=== PATIENT | male | born 1955 | race Native Hawaiian/Other Pacific Islander ===

== ENCOUNTER 2018-04-06 13:18 | Inpatient (IN) | payer OTHER ==
[2018-04-06 13:29] VITALS: BMI 29.0
[2018-04-06] MEDS: Sodium Chloride 0.9% 1,000 ML IV STA ×2 (13:30→13:35)
[2018-04-06] MEDS: Pantoprazole 40mg/100mL NS 40 MG/100 ML BAG IVPB SCH ×3 (14:03→23:55)
[2018-04-06] MEDS ORDERED: Sodium Chloride 0.9% 1,000 ML IV STA (14:04)
[2018-04-06 14:06] LABS: BASO # 0.02 K/mm3 (0.0-2.0); BASO % 0.2 % (0.0-3.0); EOS # 0.1 (0.0-0.7); EOS % 0.9 % (1.5-5.0); GRAN # 5.5 (1.4-6.5); GRAN % 58.9 % (50.0-68.0); HEMOGLOBIN 15.8 g/dL (14.0-18.0); LYMPH # 3.4 (1.2-3.4); LYMPH % 35.9 % (22.0-35.0); MEAN CELL VOLUME 89.2 fl (80.0-105.0); MEAN CORPUSCULAR HEMOGLOBIN 30.4 pg (25.0-35.0); MEAN CORPUSCULAR HGB CONC 34.1 g/dl (31.0-37.0); MEAN PLATELET VOLUME 9.5 fl (7.0-11.0); MONO # 0.4 (0.1-0.6); MONO % 4.1 % (1.0-6.0); RBC 5.2 10^6/uL (3.5-6.1); RED CELL DISTRIBUTION WIDTH 12.8 % (11.5-14.5); WHITE BLOOD COUNT 9.3 10^3/ul (4.5-11.0)
--- NOTE | 2018-04-06 14:12 | RAD ---
Date of service: 04/06/2018 HISTORY: weakness COMPARISON: No prior. FINDINGS: LUNGS: No active pulmonary disease. PLEURA: No significant pleural effusion identified, no pneumothorax apparent. CARDIOVASCULAR: Normal. OSSEOUS STRUCTURES: No significant abnormalities. VISUALIZED UPPER ABDOMEN: Normal. OTHER FINDINGS: None. IMPRESSION: No active disease.
[2018-04-06 14:15] LABS: INR 0.94; PARTIAL THROMBOPLASTIN TIME 29.5 Seconds (25.1-36.5); PROTHROMBIN TIME 10.7 SECONDS (9.4-12.5)
[2018-04-06 14:18] LABS: ALB/GLOB RATIO 1.5 (1.1-1.8); ALBUMIN 4.9 g/dL (3.0-4.8); ALT/SGPT 43 U/L (7-56); AST/SGOT 34 U/L (17-59); BLOOD UREA NITROGEN 23 mg/dL (7-21); CALCIUM 9.4 mg/dL (8.4-10.5); GFR NON-AFRICAN AMERICAN > 60
--- NOTE | 2018-04-06 14:24 | ED PDOC ---
Arrival/HPI - General Chief Complaint: GI Problem Time Seen by Provider: 04/06/18 13:35 Historian: Patient, Family - History of Present Illness Narrative History of Present Illness (Text): 04/06/18 15:25 Patient is a 63 yo male, past medical history of hypertension, past medical history of gastronintestinal bleeding requiring previous blood transfusions and admissions, presents to the Emergency Department after a "red" bowel movement this morning three hours prior to arrival, followed by a larger bloody bowel movement one hour afterwards. As he was being transported to the ED, patient complains of feeling dizzy and lightheaded and had a third bloody bowel movement. Denies symptoms yesterday. Denies chest pain or shortness of breath. Denies abdominal pain. Denies nausea or vomiting. Denies taking any blood thinners. Time/Duration: Prior to Arrival Symptom Onset: Sudden Past Medical History - Infectious Disease Hx of Infectious Diseases: None - Cardiac Hx Hypertension: Yes - Endocrine/Metabolic Hx Diabetes Mellitus Type 2: Yes - Hematological/Oncological Hx Blood Disorders: Yes Other/Comment: "clotting disorder" - Gastrointestinal Hx Diverticulitis: Yes Hx Hemorrhoids: Yes - Psychiatric Hx Substance Use: No - Anesthesia Hx Anesthesia: No Family/Social History Family/Social History: Unknown Family HX Smoking Status: Never Smoked Hx Alcohol Use: No Hx Substance Use: No Allergies/Home Meds Allergies/Adverse Reactions: Allergies Penicillins Allergy (Verified 04/06/18 13:29) RASH Home Medications: Home Meds Medication Instructions Recorded Confirmed Atorvastatin [Lipitor] 1 tab PO HS 04/06/18 04/06/18 Canagliflozin/Metformin HCl 1 tab PO DAILY 04/06/18 04/06/18 [Invokamet 150-500 mg Tablet] Losartan [Cozaar] 1 tab PO DAILY 04/06/18 04/06/18 amLODIPine [Norvasc] 1 tab PO DAILY 04/06/18 04/06/18 Review of Systems - Review of Systems Constitutional: Fatigue. absent: Fevers Eyes: absent: Vision Changes ENT: absent: Hearing Changes Respiratory: absent: SOB, Cough Cardiovascular: absent: Chest Pain, Palpitations, Edema, Calf Pain, VICKERS Gastrointestinal: Hematochezia. absent: Abdominal Pain, Diarrhea, Nausea, Vomiting, Hematemesis Genitourinary Male: absent: Dysuria, Frequency Musculoskeletal: absent: Back Pain Skin: absent: Rash Neurological: Dizziness. absent: Headache, Focal Weakness, Gait Changes, Speech Changes, Seizure Endocrine: Diaphoresis. absent: Polyuria, Polydipsia Hemo/Lymphatic: Easy Bleeding. absent: Easy Bruising Psychiatric: absent: Depression, Suicidal Ideation Physical Exam - Physical Exam Narrative Physical Exam (Text): 04/06/18 14:28 Head: Atraumatic. Normocephalic. Eyes: PERRL. EOMI. Conjunctivae are pale. ENT: Mucous membranes are moist and intact. Oropharynx is clear and symmetric. Neck: Supple. Full ROM. No JVD. No lymphadenopathy. No meningeal signs. Cardiovascular: Regular rate. Regular rhythm. Systolic murmur noted. Distal pulses are 2+ and symmetric. Pulmonary/Chest: No evidence of respiratory distress. Clear to auscultation bilaterally. No wheezing, rales or rhonchi. Abdominal: Soft and non-distended. There is no tenderness. No rebound, guarding, or rigidity. No organomegaly. Good bowel sounds. Rectal: no external masses, maroon/red active bleeding noted from rectum, profuse, no internal masses digitally palpated, no external hemorrhoids or masses Back: No CVA tenderness. Extremities: No edema. No cyanosis. No clubbing. Full range of motion in all extremities. No calf tenderness. Skin: Skin is pale and diaphoretic. Neurological: Alert, awake, and oriented. Motor and sensory exam intact. Psychiatric: Good eye contact. Normal interaction, affect, and behavior. Vital Signs Reviewed: Yes Vital Signs Temp Pulse Resp BP Pulse Ox 04/06/18 15:31 91 H 18 106/43 L 99 04/06/18 15:08 96 H 18 114/79 98 04/06/18 14:43 91 H 18 128/52 L 98 04/06/18 14:04 98 H 17 137/93 H 97 04/06/18 13:28 99.2 F Temperature: Afebrile Blood Pressure: Hypertensive Pulse: Tachycardic Respiratory Rate: Normal Appearance: Positive for: Ill-Appearing Pain Distress: Moderate Mental Status: Positive for: Alert and Oriented X 3 Medical Decision Making ED Course and Treatment: 04/06/18 13:40 Impression: 63 year old male presenting to the emergency department complaining of rectal bleeding. Plan: stat iv line establishment and volume replacement, monitoring, cbc, gi consultation Prior Visits: Notes and results from previous visits were reviewed. Progress Notes: Patient on initial exam is diaphoretic, lightheaded. On exam he is actively bleeding with maroon blood noted approximately one liter total noted in bucket from rectum. There is currently no chest pain or abdominal pain. His heart rate is 99-103. Blood pressure systolic 130. He has history of hypertension. Past history significant for prior GI bleeds at outside facilities "6 years ago from internal hemorrhoid" and "3 years ago from diverticulitis" both requiring ICU admission as well as blood transfusions. Based on LARGE amount of active bleeding, diaphoresis, tachycardia, history of hypertension, iv lines immediately ordered as well as iv fluids. Emergent consultations placed with GI, Dr. Louie requested by admitting oncall physician Dr. Nalini Duran. ICU consultation obtained. 2 units prbc ordered based on HEAVY ACTIVE BLEEDING. Consent obtained after risks/benefits reviewed. Resident Care Spec evaluated patient in the ED. Surgery consulted due to heavy active bleeding. CT abdomen ordered. Bleeding scan ordered. Patient to be admitted to ICU. On re-exam, less diaphoretic. Heart rate 98. SBP 119. Patient denies taking aspirin or plavix or coumadin or any other blood thinners. Patient's hgb initially 15.8. This was reviewed with scheduler conveyor as well as GI team. Patient less diaphoretic. Blood products not transfused yet at this time and is pending. At this time, will HOLD initiation of transfusion as BP stable, patient remains alert, with no pain or tachycardia. Patient currently at bleeding scan. I have reviewed treatment plan with ICU team, who will follow-up with patient in ICU, reassess bleeding, vital signs, and repeat hgb. Decision to transfuse endorsed to ICU team pending re-evaluation of Hgb and re-examination of patient and imaging studies. - Lab Interpretations Lab Results: 04/06/18 13:45 04/06/18 13:45 Lab Results 04/06/18 14:00: Blood Type Confirm A POSITIVE 04/06/18 13:45: Blood Type A POSITIVE, Antibody Screen Negative, Crossmatch See Detail, BBK History Checked No verified bt 04/06/18 13:45: PT 10.7, INR 0.94, APTT 29.5 04/06/18 13:45: WBC 9.3, RBC 5.20, Hgb 15.8, Hct 46.4, MCV 89.2, MCH 30.4, MCHC 34.1, RDW 12.8, Plt Count 152, MPV 9.5, Gran % 58.9, Lymph % (Auto) 35.9 H, [place] % (Auto) 4.1, Eos % (Auto) 0.9 L, Baso % (Auto) 0.2, Gran # 5.50, Lymph # ( Auto) 3.4, [place] # (Auto) 0.4, Eos # (Auto) 0.1, Baso # (Auto) 0.02 04/06/18 13:45: Sodium 139, Potassium 4.1, Chloride 101, Carbon Dioxide 25, Anion Gap 16, BUN 23 H, Creatinine 0.8, Est GFR ( Amer) > 60, Est GFR ( Non-Af Amer) > 60, Random Glucose 129 H, Calcium 9.4, Total Bilirubin 0.8, AST 34, ALT 43, Alkaline Phosphatase 48, Lactate Dehydrogenase 469, Total Creatine Kinase 202, Troponin I < 0.01, Total Protein 8.2, Albumin 4.9 H, Globulin 3.3, Albumin/Globulin Ratio 1.5 - RAD Interpretation Narrative RAD Interpretations (Text): 04/06/18 14:38 Procedure: Chest X-ray Impression: No active disease. Dictator: Vinicio Damian MD Radiology Orders: 04/06/18 13:44 CHEST PORTABLE [RAD] Stat 04/06/18 14:36 ABD & PELVIS IV CONTRAST ONLY [CT] Stat Assistant To The Ceo: Radiologist - EKG Interpretation EKG Interpretation (Text): 04/06/18 15:31 EKG at 13:48 normal sinus rhythm rate of [address] elevations Interpreted by ED Physician: Yes Type: 12 lead EKG - Medication Orders Current Medication Orders: Dextrose (Dextrose 50% Inj) 0 ml IV STAT PRN; Protocol PRN Reason: Hypoglycemia Protocol Pantoprazole Sodium (Protonix 40mg Ivpb) 40 mg in 100 mls @ 20 mls/hr IVPB .Q5H [facility] Last Admin: 04/06/18 14:03 Dose: 20 mls/hr eMAR Start Stop Document 04/06/18 14:03 SF (Rec: 04/06/18 14:03 [email or web address] Intravenous Solution Start Date 04/06/18 Start Time 14:03 End Date 04/06/18 End time 19:03 Total Infusion Time 300 Dextrose (Dextrose 5% In Water 1000 Ml) 1,000 mls @ 0 mls/hr IV .Q0M PRN; Protocol; Per Protocol PRN Reason: Hypoglycemia Protocol Insulin Human Lispro (Humalog Low) 0 units SC ACHS [facility] PRN Reason: Protocol Discontinued Medications Sodium Chloride (Sodium Chloride 0.9%) 1,000 mls @ 1,000 mls/hr IV .Q1H STA Stop: 04/06/18 14:44 Last Admin: 04/06/18 13:35 Dose: 1,000 mls/hr eMAR Start Stop Document 04/06/18 13:35 SF (Rec: 04/06/18 14:03 [email or web address] Intravenous Solution Start Date 04/06/18 Start Time 13:35 End Date 04/06/18 End time 14:35 Total Infusion Time 60 Sodium Chloride (Sodium Chloride 0.9%) 1,000 mls @ 1,000 mls/hr IV .Q1H STA Stop: 04/06/18 15:03 Last Admin: 04/06/18 14:06 Dose: Pantoprazole Sodium (Protonix Inj) 40 mg IVP ONCE STA Stop: 04/06/18 13:46 Last Admin: 04/06/18 14:03 Dose: 40 mg IVP Administration Document 04/06/18 14:03 SF (Rec: 04/06/18 14:03 [email or web address] Charges for Administration # of IVP Administrations 1 - Scribe Statement The provider has reviewed the documentation as recorded by the Efrain Stanley All medical record entries made by the Courtneyibduke were at my direction and personally dictated by me. I have reviewed the chart and agree that the record accurately reflects my personal performance of the history, physical exam, medical decision making, and the department course for this patient. I have also personally directed, reviewed, and agree with the discharge instructions and disposition. Disposition/Present on Arrival - Present on Arrival Any Indicators Present on Arrival: No History of DVT/PE: No History of Uncontrolled Diabetes: No Urinary Catheter: No History of Decub. Ulcer: No History Surgical Site Infection Following: None - Disposition Have Diagnosis and Disposition been Completed?: Yes Diagnosis: Gastrointestinal bleeding Disposition: HOSPITALIZED Disposition Time: 14:30 Patient Plan: Admission, ICU Patient Problems: Current Active Problems Problem Status Onset Gastrointestinal bleeding Acute Condition: CRITICAL
[2018-04-06 14:29] LABS: TROPONIN I < 0.01 ng/mL
--- NOTE | 2018-04-06 15:02 | CP.PCM.CON ---
History of Present Illness - History of Present Illness History of Present Illness: MICU Consult Note HPI Patient is 63yo male with PMhx of LGIB 2/2 diverticulosis, HTN, DM, presents to the ER with rectal bleeding. Patient notes since this morning he has had 3 large blood BMs, loose, without fever, chills, N/V, abd pain. Pt also endorses mild dizziness which as resolved. Pt reports 3 years ago he had similar hospital presentation at which time it was found to be diverticular bleeding. Pt denies ASA, Plavix, NSAID, Anticoagulatn use. No other constitutional symptoms. Pt denies, CP, SOB, palpitations, HORN, hematemesis, recent melena. Labs, imaging, chart reviewed. 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 ROS as above Review of Systems - Review of Systems Review of Systems: as per HPi Past Patient History - Infectious Disease Hx of Infectious Diseases: None - Past Social History Smoking Status: Never Smoked - CARDIAC Hx Hypertension: Yes - ENDOCRINE/METABOLIC Hx Diabetes Mellitus Type 2: Yes - HEMATOLOGICAL/ONCOLOGICAL Hx Blood Disorders: Yes Other/Comment: "clotting disorder" - GASTROINTESTINAL Hx Diverticulitis: Yes Hx Hemorrhoids: Yes - PSYCHIATRIC Hx Substance Use: No - ANESTHESIA Hx Anesthesia: No Meds Allergies/Adverse Reactions: Allergies Allergy/AdvReac Type Severity Reaction Status Date / Time Penicillins Allergy RASH Verified 04/06/18 13:29 - Medications Medications: Current Medications Pantoprazole Sodium (Protonix 40mg Ivpb) 40 mg in 100 mls @ 20 mls/hr IVPB .Q5H [facility] Last Admin: 04/06/18 14:03 Dose: 20 mls/hr Sodium Chloride (Sodium Chloride 0.9%) 1,000 mls @ 1,000 mls/hr IV .Q1H STA Stop: 04/06/18 15:03 Last Admin: 04/06/18 14:06 Dose: Not Given Physical Exam - Constitutional Appears: Non-toxic, No Acute Distress - Head Exam Head Exam: NORMAL INSPECTION - Eye Exam Eye Exam: Normal appearance - ENT Exam ENT Exam: Mucous Membranes Moist - Neck Exam Neck exam: Positive for: Full Rom - Respiratory Exam Respiratory Exam: Clear to Auscultation Bilateral, NORMAL BREATHING PATTERN - Cardiovascular Exam Cardiovascular Exam: REGULAR RHYTHM, +S1, +S2 - GI/Abdominal Exam GI & Abdominal Exam: Normal Bowel Sounds, Soft - Extremities Exam Extremities exam: Positive for: normal inspection - Neurological Exam Neurological exam: Alert, Oriented x3 - Skin Skin Exam: Normal Color, Warm Results - Vital Signs Recent Vital Signs: Last Vital Signs Temp 99.2 F 04/06/18 13:28 Pulse 91 H 04/06/18 14:43 Resp 18 04/06/18 14:43 BP 128/52 L 04/06/18 14:43 Pulse Ox 98 04/06/18 14:43 - Labs Result Diagrams: 04/06/18 13:45 04/06/18 13:45 Labs: Laboratory Results - last 24 hr 04/06/18 04/06/18 04/06/18 13:45 13:45 13:45 WBC 9.3 RBC 5.20 Hgb 15.8 Hct 46.4 MCV 89.2 MCH 30.4 MCHC 34.1 RDW 12.8 Plt Count 152 MPV 9.5 Gran % 58.9 Lymph % (Auto) 35.9 H [place] % (Auto) 4.1 Eos % (Auto) 0.9 L Baso % (Auto) 0.2 Gran # 5.50 Lymph # (Auto) 3.4 [place] # (Auto) 0.4 Eos # (Auto) 0.1 Baso # (Auto) 0.02 PT 10.7 INR 0.94 APTT 29.5 Sodium 139 Potassium 4.1 Chloride 101 Carbon Dioxide 25 Anion Gap 16 BUN 23 H Creatinine 0.8 Est GFR ( Amer) > 60 Est GFR (Non-Af Amer) > 60 Random Glucose 129 H Calcium 9.4 Total Bilirubin 0.8 AST 34 ALT 43 Alkaline Phosphatase 48 Lactate Dehydrogenase 469 Total Creatine Kinase 202 Troponin I < 0.01 Total Protein 8.2 Albumin 4.9 H Globulin 3.3 Albumin/Globulin Ratio 1.5 Crossmatch BBK History Checked 04/06/18 13:45 WBC RBC Hgb Hct MCV MCH MCHC RDW Plt Count MPV Gran % Lymph % (Auto) [place] % (Auto) Eos % (Auto) Baso % (Auto) Gran # Lymph # (Auto) [place] # (Auto) Eos # (Auto) Baso # (Auto) PT INR APTT Sodium Potassium Chloride Carbon Dioxide Anion Gap BUN Creatinine Est GFR ( Amer) Est GFR (Non-Af Amer) Random Glucose Calcium Total Bilirubin AST ALT Alkaline Phosphatase Lactate Dehydrogenase Total Creatine Kinase Troponin I Total Protein Albumin Globulin Albumin/Globulin Ratio Crossmatch See Detail BBK History Checked No verified bt Assessment & Plan - Assessment and Plan (Free Text) Assessment: Pt is 63 yo male a/w LGIB HTN DM LGIB - currently afebrile, BP stable, HR 90s, AAOx3, NAD, comfortable - HH noted - GI, Surgery consulted - CT A/P pending Recommend: - supp o2 as needed, duonebs PRN, IS - Panculture, UCx, Bcx, Procal - Hold BP meds - IVF hydration - NPO - Surgical eval - Gi eval - CT A/P with PO/IV contrast - serial CBCs - maintain 2 large bore PIVs - GI ppx - DVT ppx, SCDs - Admit to MICU
--- NOTE | 2018-04-06 15:08 | CP.PCM.CON ---
<Torres Pineda - Last Filed: 04/06/18 14:59> History of Present Illness - History of Present Illness History of Present Illness: GI Fellow PGY4 consult note. Ismael Steve is a very pleasant 63M with history of hemorrhoids, diverticulosis presenting with acute GI bleed. Patient was have problems with constipation and pushing very hard. His BM had some blood streaked stool and later developed into very large blood per rectum. In the ED he had ~ 1 L of blood produced. He was tachycardic and diaphoretic. 2 unit blood ordered. Hb 15. BUN/Cr normal. He denies nausea, vomiting, abdominal pain, weight changes. Patient has history of GI bleeding in the past that required transfusions and ICU admission. He is a patient of Dr. Gonzalez. Last colonoscopy 1 year ago, showing diverticulosis and hemorrhoids. He had hemorrhoid banded several years ago. PMHx - DM, HTN, HLD, constipation PSHx - none FMHx - unremarkable SocHx- Denies smoking, etoh. 12pt ROS neg except for above Past Patient History - Infectious Disease Hx of Infectious Diseases: None - Past Social History Smoking Status: Never Smoked - CARDIAC Hx Hypertension: Yes - ENDOCRINE/METABOLIC Hx Diabetes Mellitus Type 2: Yes - HEMATOLOGICAL/ONCOLOGICAL Hx Blood Disorders: Yes Other/Comment: "clotting disorder" - GASTROINTESTINAL Hx Diverticulitis: Yes Hx Hemorrhoids: Yes - PSYCHIATRIC Hx Substance Use: No - ANESTHESIA Hx Anesthesia: No Meds Allergies/Adverse Reactions: Allergies Allergy/AdvReac Type Severity Reaction Status Date / Time Penicillins Allergy RASH Verified 04/06/18 13:29 - Medications Medications: Current Medications Pantoprazole Sodium (Protonix 40mg Ivpb) 40 mg in 100 mls @ 20 mls/hr IVPB .Q5H [facility] Last Admin: 04/06/18 14:03 Dose: 20 mls/hr Sodium Chloride (Sodium Chloride 0.9%) 1,000 mls @ 1,000 mls/hr IV .Q1H STA Stop: 04/06/18 15:03 Last Admin: 04/06/18 14:06 Dose: Not Given Physical Exam - Constitutional Appears: Non-toxic, In Acute Distress - Head Exam Head Exam: NORMAL INSPECTION - Eye Exam Eye Exam: Normal appearance - ENT Exam ENT Exam: Mucous Membranes Moist - Respiratory Exam Respiratory Exam: Clear to Auscultation Bilateral, NORMAL BREATHING PATTERN - Cardiovascular Exam Cardiovascular Exam: Tachycardia, +S1, +S2 - GI/Abdominal Exam GI & Abdominal Exam: Normal Bowel Sounds, Soft. absent: Tenderness - Rectal Exam Rectal Exam: Bloody Stool - Neurological Exam Neurological exam: Alert, CN II-XII Intact, Oriented x3 - Psychiatric Exam Psychiatric exam: Normal Affect, Normal Mood - Skin Skin Exam: Dry, Normal Color Results - Vital Signs Recent Vital Signs: Last Vital Signs Temp 99.2 F 04/06/18 13:28 Pulse 91 H 04/06/18 14:43 Resp 18 04/06/18 14:43 BP 128/52 L 04/06/18 14:43 Pulse Ox 98 04/06/18 14:43 - Labs Result Diagrams: 04/06/18 13:45 04/06/18 13:45 Labs: Laboratory Results - last 24 hr 04/06/18 04/06/18 04/06/18 13:45 13:45 13:45 WBC 9.3 RBC 5.20 Hgb 15.8 Hct 46.4 MCV 89.2 MCH 30.4 MCHC 34.1 RDW 12.8 Plt Count 152 MPV 9.5 Gran % 58.9 Lymph % (Auto) 35.9 H Ocean % (Auto) 4.1 Eos % (Auto) 0.9 L Baso % (Auto) 0.2 Gran # 5.50 Lymph # (Auto) 3.4 Ocean # (Auto) 0.4 Eos # (Auto) 0.1 Baso # (Auto) 0.02 PT 10.7 INR 0.94 APTT 29.5 Sodium 139 Potassium 4.1 Chloride 101 Carbon Dioxide 25 Anion Gap 16 BUN 23 H Creatinine 0.8 Est GFR ( Amer) > 60 Est GFR (Non-Af Amer) > 60 Random Glucose 129 H Calcium 9.4 Total Bilirubin 0.8 AST 34 ALT 43 Alkaline Phosphatase 48 Lactate Dehydrogenase 469 Total Creatine Kinase 202 Troponin I < 0.01 Total Protein 8.2 Albumin 4.9 H Globulin 3.3 Albumin/Globulin Ratio 1.5 Blood Type Antibody Screen Crossmatch BBK History Checked 04/06/18 13:45 WBC RBC Hgb Hct MCV MCH MCHC RDW Plt Count MPV Gran % Lymph % (Auto) Ocean % (Auto) Eos % (Auto) Baso % (Auto) Gran # Lymph # (Auto) Ocean # (Auto) Eos # (Auto) Baso # (Auto) PT INR APTT Sodium Potassium Chloride Carbon Dioxide Anion Gap BUN Creatinine Est GFR ( Amer) Est GFR (Non-Af Amer) Random Glucose Calcium Total Bilirubin AST ALT Alkaline Phosphatase Lactate Dehydrogenase Total Creatine Kinase Troponin I Total Protein Albumin Globulin Albumin/Globulin Ratio Blood Type A POSITIVE Antibody Screen Negative Crossmatch See Detail BBK History Checked No verified bt Assessment & Plan - Assessment and Plan (Free Text) Assessment: 63M with history of diverticulosis presenting with acute GI bleed likely due to diverticular bleed #Acute blood loss due to likely diverticular bleed #Diverticulosis #Hemorrhoids #HTN #DM PLAN: -Blood products ordered. -Monitor Hb q6h x 24hr. -Supportive care, large bore IVs -Monitor in ICU overnight until stable -Recommend surgical evaluation given history of major bleeds, multiple transfusions -GI Bleeding scan stat -PPI IV daily as this is likely a lower gi bleed. -NPO except meds -Hold all anticoagulation, NSAIDs. I discussed case with Dr. Alves. - Date & Time Date: 04/06/18 Time: 15:14 <Dina Alves - Last Filed: 04/07/18 12:10> Meds - Medications Medications: Current Medications Dextrose (Dextrose 50% Inj) 0 ml IV STAT PRN; Protocol PRN Reason: Hypoglycemia Protocol Dextrose (Dextrose 5% In Water 1000 Ml) 1,000 mls @ 0 mls/hr IV .Q0M PRN; Protocol; Per Protocol PRN Reason: Hypoglycemia Protocol Dextrose/Sodium Chloride (Dextrose 5%/0.9% Ns 1000 Ml) 1,000 mls @ 150 mls/hr IV .Q6H40M [facility] Last Admin: 04/07/18 09:38 Dose: 150 mls/hr Insulin Human Lispro (Humalog Low) 0 units SC ACHS [facility] PRN Reason: Protocol Last Admin: 04/07/18 08:25 Dose: Not Given Pantoprazole Sodium (Protonix Inj) 40 mg IVP DAILY [facility] Last Admin: 04/07/18 09:41 Dose: 40 mg Results - Vital Signs Recent Vital Signs: Last Vital Signs Temp 98.1 F 04/07/18 09:36 Pulse 76 04/07/18 08:00 Resp 30 H 04/07/18 08:31 BP 131/71 04/07/18 08:00 Pulse Ox 97 04/07/18 08:00 - Labs Result Diagrams: 04/07/18 08:30 04/07/18 04:15 Labs: Laboratory Results - last 24 hr 04/06/18 04/06/18 04/06/18 15:48 18:27 22:11 WBC 9.5 RBC 4.57 Hgb 13.7 L D Hct 40.6 L MCV 88.8 MCH 30.0 MCHC 33.7 RDW 12.9 Plt Count 150 MPV 9.9 Gran % 69.3 H Lymph % (Auto) 26.3 Ocean % (Auto) 4.2 Eos % (Auto) 0.1 L Baso % (Auto) 0.1 Gran # 6.60 H Lymph # (Auto) 2.5 Ocean # (Auto) 0.4 Eos # (Auto) 0.0 Baso # (Auto) 0.01 pO2 VBG pH VBG pCO2 VBG HCO3 VBG Total CO2 VBG O2 Sat (Calc) VBG Base Excess VBG Potassium Glucose Lactate FiO2 Sodium Potassium Chloride Carbon Dioxide Anion Gap BUN Creatinine Est GFR ( Amer) Est GFR (Non-Af Amer) POC Glucose (mg/dL) 138 H Random Glucose Calcium Phosphorus Magnesium Total Bilirubin AST ALT Alkaline Phosphatase Troponin I Total Protein Albumin Globulin Albumin/Globulin Ratio Venous Blood Potassium Urine Color Light yellow Urine Appearance Clear Urine pH 6.0 Ur Specific [place] 1.020 Urine Protein Negative Urine Glucose (UA) >=1000 Urine Ketones 15 H Urine Blood Negative Urine Nitrate Negative Urine Bilirubin Negative Urine Urobilinogen 0.2 Ur Leukocyte Esterase Negative 04/06/18 04/07/18 04/07/18 22:39 04:15 04:15 WBC 8.7 7.0 RBC 4.16 3.86 Hgb 12.5 L 11.7 L Hct 37.0 L 34.4 L MCV 88.9 89.1 MCH 30.0 30.3 MCHC 33.8 34.0 RDW 13.0 12.9 Plt Count 152 137 MPV 9.6 10.1 Gran % Lymph % (Auto) Ocean % (Auto) Eos % (Auto) Baso % (Auto) Gran # Lymph # (Auto) Ocean # (Auto) Eos # (Auto) Baso # (Auto) pO2 VBG pH VBG pCO2 VBG HCO3 VBG Total CO2 VBG O2 Sat (Calc) VBG Base Excess VBG Potassium Glucose Lactate FiO2 Sodium 139 Potassium 4.2 Chloride 107 Carbon Dioxide 25 Anion Gap 11 BUN 16 Creatinine 0.7 L Est GFR ( Amer) > 60 Est GFR (Non-Af Amer) > 60 POC Glucose (mg/dL) Random Glucose 129 H Calcium 7.9 L Phosphorus 3.2 Magnesium 2.1 Total Bilirubin 0.7 AST 27 ALT 33 Alkaline Phosphatase 31 L D Troponin I Total Protein 5.8 Albumin 3.3 Globulin 2.5 Albumin/Globulin Ratio 1.3 Venous Blood Potassium Urine Color Urine Appearance Urine pH Ur Specific [place] Urine Protein Urine Glucose (UA) Urine Ketones Urine Blood Urine Nitrate Urine Bilirubin Urine Urobilinogen Ur Leukocyte Esterase 04/07/18 04/07/18 04/07/18 07:38 08:30 09:00 WBC 6.1 RBC 3.95 Hgb 11.9 L Hct 35.5 L MCV 89.9 MCH 30.1 MCHC 33.5 RDW 13.0 Plt Count 142 MPV 9.5 Gran % Lymph % (Auto) Ocean % (Auto) Eos % (Auto) Baso % (Auto) Gran # Lymph # (Auto) Ocean # (Auto) Eos # (Auto) Baso # (Auto) pO2 VBG pH VBG pCO2 VBG HCO3 VBG Total CO2 VBG O2 Sat (Calc) VBG Base Excess VBG Potassium Glucose Lactate FiO2 Sodium Potassium Chloride Carbon Dioxide Anion Gap BUN Creatinine Est GFR ( Amer) Est GFR (Non-Af Amer) POC Glucose (mg/dL) 144 H Random Glucose Calcium Phosphorus Magnesium Total Bilirubin AST ALT Alkaline Phosphatase Troponin I < 0.01 Total Protein Albumin Globulin Albumin/Globulin Ratio Venous Blood Potassium Urine Color Urine Appearance Urine pH Ur Specific [place] Urine Protein Urine Glucose (UA) Urine Ketones Urine Blood Urine Nitrate Urine Bilirubin Urine Urobilinogen Ur Leukocyte Esterase 04/07/18 04/07/18 09:00 10:54 WBC RBC Hgb Hct MCV MCH MCHC RDW Plt Count MPV Gran % Lymph % (Auto) Ocean % (Auto) Eos % (Auto) Baso % (Auto) Gran # Lymph # (Auto) Ocean # (Auto) Eos # (Auto) Baso # (Auto) pO2 34 VBG pH 7.36 VBG pCO2 46.0 VBG HCO3 26.0 VBG Total CO2 27.4 VBG O2 Sat (Calc) 71.9 H VBG Base Excess 0.1 VBG Potassium 3.9 Glucose 147 H Lactate 1.4 FiO2 21.0 Sodium 139.0 Potassium Chloride 107.0 Carbon Dioxide Anion Gap BUN Creatinine Est GFR ( Amer) Est GFR (Non-Af Amer) POC Glucose (mg/dL) 168 H Random Glucose Calcium Phosphorus Magnesium Total Bilirubin AST ALT Alkaline Phosphatase Troponin I Total Protein Albumin Globulin Albumin/Globulin Ratio Venous Blood Potassium 3.9 Urine Color Urine Appearance Urine pH Ur Specific [place] Urine Protein Urine Glucose (UA) Urine Ketones Urine Blood Urine Nitrate Urine Bilirubin Urine Urobilinogen Ur Leukocyte Esterase Attending/Attestation - Attestation I have personally seen and examined this patient.: Yes I have fully participated in the care of the patient.: Yes I have reviewed all pertinent clinical information: Yes Notes (Text): 04/07/18 12:07 63 yr old M admitted with hstory of diverticular bleed with rectal bleeding. Will send patient for bleeding scan and plan rest of management accordingly. If positive will require IR embolization
[2018-04-06] MEDS ORDERED: Dextrose 50% SYRINGE Inj (50 ml) IV PRN (16:08)
--- NOTE | 2018-04-06 16:08 | CP.PCM.CON ---
History of Present Illness - History of Present Illness History of Present Illness: General Surgery Dr. Kohler 63 y/o M w/ PMHx of HTN, DM2 presents to the ED c/o GI bleeding. Pt reports dark melenotic loose stool this AM upon waking. Pt reports associated lightheadedness and dizziness. Pt had similar episode of GI bleeding 3yrs ago [place] [facility] [place], bleeding attributed to internal hemorrhoids. In the ED, pt has had multiple episodes of BRBPR. Pt became hypotensive and ICU consult placed. Hgb 15 on presentation; however, likely lower now. Pt given IVF bolus and pressure responded appropriately. 2 units pRBC current on hold should pt require transfusion. Pt currently denies F/C, N/V , abd pain, recent illness, CP, SOB. Pt going for bleeding scan as per GI recs. PMHx: HLD, HTN, DM2, clotting disordfer, diverticulosis, hemorrhoids, GIB Meds: reviewed in chart ALL: PCN PSH: knee arthroscopy SHx: former smoker (quit 30yrs ago), social EtOH, denies drug use FHx:noncontributory Review of Systems - Review of Systems All systems: reviewed and no additional remarkable complaints except (see HPI) Past Patient History - Infectious Disease Hx of Infectious Diseases: None - Past Social History Smoking Status: Never Smoked - CARDIAC Hx Hypertension: Yes - ENDOCRINE/METABOLIC Hx Diabetes Mellitus Type 2: Yes - HEMATOLOGICAL/ONCOLOGICAL Hx Blood Disorders: Yes Other/Comment: "clotting disorder" - GASTROINTESTINAL Hx Diverticulitis: Yes Hx Hemorrhoids: Yes - PSYCHIATRIC Hx Substance Use: No - ANESTHESIA Hx Anesthesia: No Meds Allergies/Adverse Reactions: Allergies Allergy/AdvReac Type Severity Reaction Status Date / Time Penicillins Allergy RASH Verified 04/06/18 13:29 - Medications Medications: Current Medications Pantoprazole Sodium (Protonix 40mg Ivpb) 40 mg in 100 mls @ 20 mls/hr IVPB .Q5H [facility] Last Admin: 04/06/18 14:03 Dose: 20 mls/hr Physical Exam - Constitutional Appears: Non-toxic, No Acute Distress - Head Exam Head Exam: NORMAL INSPECTION - Eye Exam Eye Exam: Normal appearance - ENT Exam ENT Exam: Mucous Membranes Moist - Respiratory Exam Respiratory Exam: NORMAL BREATHING PATTERN. absent: Accessory Muscle Use, Respiratory Distress - Cardiovascular Exam Cardiovascular Exam: REGULAR RHYTHM. absent: Bradycardia, Tachycardia - GI/Abdominal Exam GI & Abdominal Exam: Soft. absent: Distended, Firm, Guarding, Rebound, Rigid, Tenderness - Rectal Exam Rectal Exam: Bloody Stool - Extremities Exam Extremities exam: Positive for: normal inspection. Negative for: pedal edema - Neurological Exam Neurological exam: Alert, Oriented x3 - Psychiatric Exam Psychiatric exam: Normal Affect, Normal Mood - Skin Skin Exam: Dry, Intact, Pallor, Warm Results - Vital Signs Recent Vital Signs: Last Vital Signs Temp 99.2 F 04/06/18 13:28 Pulse 91 H 04/06/18 15:33 Resp 18 04/06/18 15:31 BP 106/43 L 04/06/18 15:31 Pulse Ox 99 04/06/18 15:33 - Labs Result Diagrams: 04/06/18 13:45 04/06/18 13:45 - Imaging and Cardiology Bleeding scan Status: Pending Assessment & Plan - Assessment and Plan (Free Text) Assessment: 63 y/o M w/ lower GI bleeding likely 2/2 diverticulosis, though bleeding scan pending - f/u bleeding scan - f/u GI recs - transfuse for Hgb <7 &/or symptomatic anemia - monitor bowel function - Q6 H/H until stable - NPO/IVF - monitor vitals Q4 - strict Is & Os - may need IR embolization vs surgery if continues to bleed - cont medical management per ICU Pt discussed w/ Dr. Jose F Avilez DO PGY3
[2018-04-06 16:17] LABS: URINE BILIRUBIN NEGATIVE (NEGATIVE); URINE BLOOD NEGATIVE (NEGATIVE); URINE GLUCOSE (UA) >=1000 mg/dL (NEGATIVE); URINE LEUKOCYTE ESTERASE NEGATIVE Leu/uL (NEGATIVE); URINE PROTEIN NEGATIVE mg/dL (<30 mg/dL); URINE UROBILINOGEN 0.2 E.U./dL (<1 E.U./dL)
[2018-04-06 16:18] LABS: URINE APPEARANCE CLEAR (CLEAR); URINE COLOR LIGHT YELLOW (YELLOW)
--- NOTE | 2018-04-06 17:22 | CT ---
Date of service: 04/06/2018 PROCEDURE: CT Abdomen and Pelvis with contrast HISTORY: patient with severe gi bleed COMPARISON: None. TECHNIQUE: Contrast dose: 150 cc Omnipaque 350. Radiation dose: Total exam DLP = 528.62 mGy-cm. This CT exam was performed using one or more of the following dose reduction techniques: Automated exposure control, adjustment of the mA and/or kV according to patient size, and/or use of iterative reconstruction technique. FINDINGS: LOWER THORAX: Unremarkable. LIVER: Hepatic steatosis. No focal masses. No intrahepatic bile duct dilatation or perihepatic ascites. GALLBLADDER AND BILE DUCTS: Unremarkable. PANCREAS: Unremarkable. No gross lesion or ductal dilatation. SPLEEN: Unremarkable. ADRENALS: Unremarkable. No mass. KIDNEYS AND URETERS: Unremarkable. No hydronephrosis. No solid mass. VASCULATURE: Unremarkable. No aortic aneurysm. BOWEL: Mild dilatation of the colon in its entirety, of portions of the colon including the sigmoid and rectum are fluid filled. Diverticulosis without an acute inflammatory component or other associated pathologic process. APPENDIX: No abnormalities to suggest acute appendicitis. No right lower quadrant inflammatory processes identified. PERITONEUM: Unremarkable. No free fluid. No free air. LYMPH NODES: Unremarkable. No enlarged lymph nodes. BLADDER: Unremarkable. REPRODUCTIVE: Unremarkable. BONES: No acute fracture. OTHER FINDINGS: None. IMPRESSION: Mildly dilated fluid-filled colon without mechanical obstruction. Diverticulosis without an acute inflammatory component or other associated pathologic process. Additional benign and/or incidental findings described above.
--- NOTE | 2018-04-06 17:30 | CARD ---
APPROVED REPORT Date of service: 04/06/2018 EKG Measurement Heart [id number] <Conclusion> Normal sinus rhythm Possible Inferior infarct, age undetermined Abnormal ECG
--- NOTE | 2018-04-06 18:05 | NM ---
Date of service: 04/06/2018 PROCEDURE: Nuclear medicine gastrointestinal bleeding scan. HISTORY: Hematochezia COMPARISON: None available. TECHNIQUE: 4ccof patient blood was withdrawn and mixed with 20.2mCi of technetium ultra tagged. Images of the abdomen and pelvis were obtained in the anterior and posterior projection at 1 min intervals over a period of 45 min. FINDINGS: There is immediate pooling of blood in the rectum and what appears to be blood in outside the pelvic cavity. There there is brisk bleeding from the right hemicolon in the vicinity of the splenic flexure with subsequent images demonstrating rapid transit through the colon including transverse colon sigmoid. Physiologic activity was seen in the heart, liver, spleen and blood vessels. IMPRESSION: Positive examination for acute gastrointestinal hemorrhage. The site of origin appears to be the ascending colon/ hepatic flexure with subsequent transit through the remainder of the colon and pooling beyond the anal rectal junction
[2018-04-06 18:33] LABS: BASO # 0.01 K/mm3 (0.0-2.0); BASO % 0.1 % (0.0-3.0); EOS % 0.1 % (1.5-5.0); GRAN # 6.6 (1.4-6.5); GRAN % 69.3 % (50.0-68.0); HEMOGLOBIN 13.7 g/dL (14.0-18.0); LYMPH # 2.5 (1.2-3.4); LYMPH % 26.3 % (22.0-35.0); MEAN CELL VOLUME 88.8 fl (80.0-105.0); MEAN CORPUSCULAR HGB CONC 33.7 g/dl (31.0-37.0); MEAN PLATELET VOLUME 9.9 fl (7.0-11.0); MONO # 0.4 (0.1-0.6); MONO % 4.2 % (1.0-6.0); RBC 4.57 10^6/uL (3.5-6.1); RED CELL DISTRIBUTION WIDTH 12.9 % (11.5-14.5); WHITE BLOOD COUNT 9.5 10^3/ul (4.5-11.0)
[2018-04-06] MEDS: Dextrose 5%/0.9% NS 1,000 ML IV SCH (19:52)
[2018-04-06] MEDS: Insulin Lispro (humaLOG) LOW Coverage SC SCH (22:00)
[2018-04-06 22:40] LABS: HEMOGLOBIN 12.5 g/dL (14.0-18.0); MEAN CELL VOLUME 88.9 fl (80.0-105.0); MEAN CORPUSCULAR HGB CONC 33.8 g/dl (31.0-37.0); MEAN PLATELET VOLUME 9.6 fl (7.0-11.0); RBC 4.16 10^6/uL (3.5-6.1); WHITE BLOOD COUNT 8.7 10^3/ul (4.5-11.0)
--- NOTE | 2018-04-06 23:23 | HP ---
I am tax commissioner today for the [facility]. HISTORY OF PRESENT ILLNESS: He is a 63-year-old man I saw in the Intensive Care Unit, who comes in with history of gastrointestinal bleeding, will require a blood transfusion and admission to the Intensive Care Unit. They showed me a picture of the bedpan completely full of bright dark red blood. He has had this once before from a bleeding hemorrhoid. He also had it once before from a bleeding diverticulitis. He also was eating a lot of nuts this weekend and we are not sure where it is coming from except that is a GI bleed. He will need to be transfused, it looks like at least 2-3 units of blood are in the bedpan. He is not short of breath. No chest pain. No dizziness, but he feels like it is going to happen and it was a sudden onset. He has a history of type 2 diabetes. He does have a clotting this order. He has had diverticulitis. He has had hemorrhoids in the past that were bleeding. FAMILY HISTORY: Unknown family history. SOCIAL HISTORY: Never smoked. No alcohol. No drugs. ALLERGIES: HE HAS AN ALLERGY TO PENICILLIN. MEDICATIONS: He is on Lipitor, metformin, Cozaar and Norvasc. PAST MEDICAL HISTORY: He has got hypertension, diabetes, high cholesterol history. REVIEW OF SYSTEMS: Very tired. No fevers. No acute vision or hearing changes. No shortness of breath or cough. No chest pain, palpitations, edema, calf pain or dyspnea on exertion. He is having hematochezia. No abdominal pain. No diarrhea. No nausea, vomiting. No hematemesis. Just a lot of blood in the bowels. No problems urinating. No back pain. No skin rashes or ulcers. He is a little bit dizzy. No headache, focal weakness changes or speech changes. No problems urinating, but he is a little bit sweaty and he easily bleeds. No depression. No suicidal ideation. PHYSICAL EXAMINATION: VITAL SIGNS: He has a 99.2 temp, 98 pulse, 17 respiratory rate, 137/93 blood pressure, 97% O2 sat on room air. HEENT: His head is atraumatic, normocephalic. Extraocular muscles are intact. Pupils equal, reactive to light. Conjunctivae are clear at this time. Throat is moist. NECK: Supple. No lymphadenopathy. No meningeal signs. LUNGS: Clear to auscultation with decreased breath sounds. No wheezes or rhonchi or rales appreciated. HEART: Regular rate. ABDOMEN: Completely soft, nontender. Positive bowel sounds. No guarding, no rebound, no CVA tenderness. Good bowel sounds. RECTAL: Showed no external masses. Maroon red active bleeding noted in the rectum, profuse. No palpable external hemorrhoids, they said. No CVA tenderness. EXTREMITIES: No edema of the lower extremities. SKIN: Pale and diaphoretic. NEUROLOGIC: He is alert and oriented x3. Motor and sensory exam are intact. PSYCHIATRIC: Good eye contact. Normal interaction, affect and behavior. LYMPHATICS: Thyroid midline. No palpable lymphadenopathy. LABORATORY DATA: He had multiple tests done. CAT scan of the abdomen and pelvis showed some diverticulosis. Chest x-ray was clear. No active disease. He had an electrocardiogram, which showed normal sinus rhythm, possible inferior infarct, age undetermined. He had a bleeding scan, which showed ascending colon, hepatic flexure could be the area of the bleeding. IMPRESSION: He is going to have consults with GI and Surgery and the office machines sales representative. He is in the Intensive Care Unit right now. He is on dextrose, insulin, Protonix IV. He will get insulin coverage and oxygen. We will check his labs tomorrow. He is going to have blood test [id number] and he most probably will be transfused in the next 24 hours. He is here for acute gastrointestinal bleed. Consulted GI, Surgery and the office machines sales representative. César Duran DO
[2018-04-07] MEDS: Dextrose 5%/0.9% NS 1,000 ML IV SCH ×3 (02:15→16:35)
[2018-04-07] MEDS: Pantoprazole 40mg/100mL NS 40 MG/100 ML BAG IVPB SCH (04:58)
[2018-04-07 05:05] LABS: ALB/GLOB RATIO 1.3 (1.1-1.8); ALBUMIN 3.3 g/dL (3.0-4.8); ALT/SGPT 33 U/L (7-56); AST/SGOT 27 U/L (17-59); BLOOD UREA NITROGEN 16 mg/dL (7-21); CALCIUM 7.9 mg/dL (8.4-10.5); GFR NON-AFRICAN AMERICAN > 60
[2018-04-07 05:11] LABS: HEMOGLOBIN 11.7 g/dL (14.0-18.0); MEAN CELL VOLUME 89.1 fl (80.0-105.0); MEAN CORPUSCULAR HEMOGLOBIN 30.3 pg (25.0-35.0); MEAN PLATELET VOLUME 10.1 fl (7.0-11.0); RBC 3.86 10^6/uL (3.5-6.1); RED CELL DISTRIBUTION WIDTH 12.9 % (11.5-14.5)
[2018-04-07] MEDS: Insulin Lispro (humaLOG) LOW Coverage SC SCH ×3 (08:25→16:37)
--- NOTE | 2018-04-07 08:42 | CP.PCM.PN ---
<Torres Pineda - Last Filed: 04/07/18 10:42> Subjective - Date & Time of Evaluation Date of Evaluation: 04/07/18 Time of Evaluation: 08:40 - Subjective Subjective: GI Fellow PGY4 Patient is doing better this AM. His bloody BMs are decreasing in volume and frequency. His vitals have normalized and Hb trending to plateau. He has been able to get out of bed without lightheadedness. He denies abdominal pain, nausea , vomiting. 5pt ROS neg except for above. Objective - Vital Signs/Intake and Output Vital Signs (last 24 hours): Temp Pulse Resp BP Pulse Ox 98.2 F 69 18 131/75 97 04/07/18 04:00 04/07/18 06:10 04/07/18 06:10 04/07/18 06:00 04/07/18 06:10 Intake and Output: 04/07/18 04/07/18 06:59 18:59 Intake Total 2040 Output Total 950 Balance 1090 - Medications Medications: Current Medications Dextrose (Dextrose 50% Inj) 0 ml IV STAT PRN; Protocol PRN Reason: Hypoglycemia Protocol Pantoprazole Sodium (Protonix 40mg Ivpb) 40 mg in 100 mls @ 20 mls/hr IVPB .Q5H [facility] Last Admin: 04/07/18 04:58 Dose: 20 mls/hr Dextrose (Dextrose 5% In Water 1000 Ml) 1,000 mls @ 0 mls/hr IV .Q0M PRN; Protocol; Per Protocol PRN Reason: Hypoglycemia Protocol Dextrose/Sodium Chloride (Dextrose 5%/0.9% Ns 1000 Ml) 1,000 mls @ 150 mls/hr IV .Q6H40M [facility] Last Admin: 04/07/18 02:15 Dose: 150 mls/hr Insulin Human Lispro (Humalog Low) 0 units SC ACHS [facility] PRN Reason: Protocol Last Admin: 04/07/18 08:25 Dose: Not Given - Labs Labs: 04/07/18 04:15 04/07/18 04:15 PT 10.7 SECONDS (9.4-12.5) 04/06/18 13:45 INR 0.94 04/06/18 13:45 APTT 29.5 Seconds (25.1-36.5) 04/06/18 13:45 - Constitutional Appears: Non-toxic, No Acute Distress - Head Exam Head Exam: NORMAL INSPECTION - Eye Exam Eye Exam: Normal appearance - ENT Exam ENT Exam: Mucous Membranes Moist - Respiratory Exam Respiratory Exam: Clear to Ausculation Bilateral, NORMAL BREATHING PATTERN - Cardiovascular Exam Cardiovascular Exam: REGULAR RHYTHM - GI/Abdominal Exam GI & Abdominal Exam: Soft, Normal Bowel Sounds. absent: Tenderness - Extremities Exam Extremities Exam: Normal Inspection - Neurological Exam Neurological Exam: Normal Gait, Oriented x3 - Psychiatric Exam Psychiatric exam: Normal Affect, Normal Mood - Skin Skin Exam: Dry, Normal Color Assessment and Plan - Assessment and Plan (Free Text) Assessment: 63M with history of diverticulosis presenting with acute GI bleed likely due to diverticular bleed #Acute blood loss due to likely diverticular bleed #Diverticulosis #Hemorrhoids #HTN #DM PLAN: -Bleeding scan shows likely hepatic flexure bleed. -Clinical and Hb appear that bleeding has improved. -Blood products ordered and are on hold. At this point, he does not need them. -Continue to monitor Hb, and BM -If everything continues to appear stable, he can likely transfer out of ICU this afternoon. -Surgery on board. -d/c ppi, no upper GI bleed, not taking previously -Start CLD. -Hold all anticoagulation, NSAIDs. -Must avoid constipation in the future. Recommend daily MiraLax as outpt titrated to 1 soft BM per day. -Note, if bleeding resumes, worsens, he would benefit from IR embolization. <Dina Alves - Last Filed: 04/07/18 12:13> Objective - Vital Signs/Intake and Output Vital Signs (last 24 hours): Temp Pulse Resp BP Pulse Ox 98.1 F 76 30 H 131/71 97 04/07/18 09:36 04/07/18 08:00 04/07/18 08:31 04/07/18 08:00 04/07/18 08:00 Intake and Output: 04/07/18 04/07/18 06:59 18:59 Intake Total 2040 Output Total 950 Balance 1090 - Medications Medications: Current Medications Dextrose (Dextrose 50% Inj) 0 ml IV STAT PRN; Protocol PRN Reason: Hypoglycemia Protocol Dextrose (Dextrose 5% In Water 1000 Ml) 1,000 mls @ 0 mls/hr IV .Q0M PRN; Protocol; Per Protocol PRN Reason: Hypoglycemia Protocol Dextrose/Sodium Chloride (Dextrose 5%/0.9% Ns 1000 Ml) 1,000 mls @ 150 mls/hr IV .Q6H40M [facility] Last Admin: 04/07/18 09:38 Dose: 150 mls/hr Insulin Human Lispro (Humalog Low) 0 units SC ACHS [facility] PRN Reason: Protocol Last Admin: 04/07/18 08:25 Dose: Not Given Pantoprazole Sodium (Protonix Inj) 40 mg IVP DAILY [facility] Last Admin: 04/07/18 09:41 Dose: 40 mg - Labs Labs: 04/07/18 08:30 04/07/18 04:15 PT 10.7 SECONDS (9.4-12.5) 04/06/18 13:45 INR 0.94 04/06/18 13:45 APTT 29.5 Seconds (25.1-36.5) 04/06/18 13:45 Attending/Attestation - Attestation I have personally seen and examined this patient.: Yes I have fully participated in the care of the patient.: Yes I have reviewed all pertinent clinical information, including history, physical exam and plan: Yes Notes (Text): 04/07/18 12:10 Patient seen in MICU this am. This is a 63 yr old M with history of diverticulosis presenting with acute GI bleed due to diverticular bleed seen on nuclear bleeding scan in hepatic flexure and ascending colon. Scan was not reported by nuclear tech/radiologist and hence patient did not get IR embolization. This am bleeding is self resolving. Has outside GI with whom he had colonoscopy last year. Clear liquid diet and advance as tolerated. Discussed with the underground miner and PMD if patient bleeds again would recommend Ct angiogram and embolization. No further GI work up required.
--- NOTE | 2018-04-07 08:50 | CP.PCM.PN ---
Subjective - Date & Time of Evaluation Date of Evaluation: 04/07/18 Time of Evaluation: 07:40 - Subjective Subjective: General Surgery Dr. Kohler Pt S&E @bedside. pt continued to have bloody BM overnight. vitals stable. pt has no complaints this AM. denies F/C, CP, SOB, N/V, abd pain. NPO. Objective - Vital Signs/Intake and Output Vital Signs (last 24 hours): Temp Pulse Resp BP Pulse Ox 98.2 F 69 18 131/75 97 04/07/18 04:00 04/07/18 06:10 04/07/18 06:10 04/07/18 06:00 04/07/18 06:10 Intake and Output: 04/07/18 04/07/18 06:59 18:59 Intake Total 2040 Output Total 950 Balance 1090 - Medications Medications: Current Medications Dextrose (Dextrose 50% Inj) 0 ml IV STAT PRN; Protocol PRN Reason: Hypoglycemia Protocol Pantoprazole Sodium (Protonix 40mg Ivpb) 40 mg in 100 mls @ 20 mls/hr IVPB .Q5H [facility]PL[facility] Last Admin: 04/07/18 04:58 Dose: 20 mls/hr Dextrose (Dextrose 5% In Water 1000 Ml) 1,000 mls @ 0 mls/hr IV .Q0M PRN; Protocol; Per Protocol PRN Reason: Hypoglycemia Protocol Dextrose/Sodium Chloride (Dextrose 5%/0.9% Ns 1000 Ml) 1,000 mls @ 150 mls/hr IV .Q6H40M [facility]PL[facility] Last Admin: 04/07/18 02:15 Dose: 150 mls/hr Insulin Human Lispro (Humalog Low) 0 units SC ACHS [facility] PRN Reason: Protocol Last Admin: 04/07/18 08:25 Dose: Not Given - Labs Labs: 04/07/18 04:15 04/07/18 04:15 PT 10.7 SECONDS (9.4-12.5) 04/06/18 13:45 INR 0.94 04/06/18 13:45 APTT 29.5 Seconds (25.1-36.5) 04/06/18 13:45 - Constitutional Appears: Non-toxic, No Acute Distress - Head Exam Head Exam: NORMAL INSPECTION - Eye Exam Eye Exam: Normal appearance - ENT Exam ENT Exam: Mucous Membranes Moist - Respiratory Exam Respiratory Exam: NORMAL BREATHING PATTERN. absent: Accessory Muscle Use, Respiratory Distress - Cardiovascular Exam Cardiovascular Exam: REGULAR RHYTHM. absent: Bradycardia, Tachycardia - GI/Abdominal Exam GI & Abdominal Exam: Soft. absent: Distended, Firm, Guarding, Rigid, Tenderness , Rebound - Extremities Exam Extremities Exam: Normal Inspection - Neurological Exam Neurological Exam: Alert, Awake, Oriented x3 - Psychiatric Exam Psychiatric exam: Normal Affect, Normal Mood - Skin Skin Exam: Dry, Intact, Normal Color, Warm Assessment and Plan - Assessment and Plan (Free Text) Assessment: 63 y/o M w/ lower GI bleeding likely 2/2 diverticulosis, though bleeding scan pending - Bleeding scan: hepatic flexure bleeding - f/u GI recs for colonoscopy - transfuse for Hgb <7 &/or symptomatic anemia - monitor bowel function - Q6 H/H until stable - NPO/IVF - monitor vitals Q4 - strict Is & Os - may need IR embolization vs surgery if continues to bleed - cont medical management per ICU Pt discussed w/ Dr. Jose F Avilez DO PGY3
[2018-04-07 08:51] LABS: HEMOGLOBIN 11.9 g/dL (14.0-18.0); MEAN CELL VOLUME 89.9 fl (80.0-105.0); MEAN CORPUSCULAR HEMOGLOBIN 30.1 pg (25.0-35.0); MEAN CORPUSCULAR HGB CONC 33.5 g/dl (31.0-37.0); MEAN PLATELET VOLUME 9.5 fl (7.0-11.0); RBC 3.95 10^6/uL (3.5-6.1); WHITE BLOOD COUNT 6.1 10^3/ul (4.5-11.0)
[2018-04-07 09:51] LABS: VENOUS BLOOD GAS BASE EXCESS 0.1 mmol/L (0.0-2.0); VENOUS BLOOD GAS PO2 34 mm/Hg (30-55); VENOUS BLOOD PH 7.36 (7.32-7.43)
--- NOTE | 2018-04-07 10:05 | PN ---
DATE: 04/07/2018 SUBJECTIVE: The patient was seen and examined at bedside. He is comfortable. He talks full sentences. He is not in respiratory or otherwise distress. PHYSICAL EXAMINATION: VITAL SIGNS: Blood pressure 131/71, heart rate 76, oxygen saturation 97%, respiratory rate 20. ENT: Head and neck atraumatic. LUNGS: Clear to auscultation bilaterally. HEART: Regular rate and rhythm. S1 and S2 normal. ABDOMEN: Soft, nontender, nondistended. MUSCULOSKELETAL: No C/C/E. NEURO: The patient moves all extremities spontaneously. SKIN: Moist. PSYCH: The patient is alert, awake and oriented x3. LABORATORY DATA: Sodium 139, potassium 4.2, chloride 107, carbon dioxide 25, BUN 16, creatinine 0.7, glucose 144, AST 27, ALT 33, total bilirubin 0.7. Troponin less than 0.01. INR 0.94. WBC 7, hemoglobin 11.7, down from 12.5, platelet count 137. The patient did have a few bloody bowel movement overnight and about 1 hour ago. MEDICATIONS: D5 normal saline at 150 mL/hour, Protonix drip. ASSESSMENT AND PLAN: This is a 63-year-old gentleman with positive GI bleeding scan/lower GI bleeding, who is fairly asymptomatic, hemodynamically stable, protecting his airways. Hemoglobin clearly above 9 even though trending down. The patient did have few episodes of "GI bleeding" in the past. The last one about 3 years ago during which he passed out. He is again definitely asymptomatic at the present time. GI and Surgical services were consulted and their input is pending. I would not transfuse the patient PRBC at present time. I will repeat troponin level. I will repeat VBG with lactic acid as well. I will maintain hemoglobin between above 7 mg/dL. I will continue with Protonix drip, IV fluids, n.p.o. large-bore PIVs. If neither GI nor Surgery planning any procedures today or tomorrow, I will transfer the patient to telemetry while continuing serial CBC monitoring. Addendum: troponin x 2 neg, LA 1.4 ccm time 40 min Keon Mathews MD [facility] # [id number] MTDD
[2018-04-07 14:28] LABS: HEMOGLOBIN 11.2 g/dL (14.0-18.0)
--- NOTE | 2018-04-07 15:26 | CP.CCUPN ---
<Annika Gonzalez - Last Filed: 04/07/18 15:22> CCU Subjective - Physician Review Subjective (Free Text): 04/07/18 15:22 Patient seen and examined at bedside. Patient reports 4 bloody BMs overnight. Patient denies fevers, chills, nausea, vomiting, abdominal pain. Reports mild dizziness when OOB to chair today, patient transferred back to bed. CCU Objective - Vital Signs / Intake & Output Vital Signs (Last 4 hours): Vital Signs Pulse Resp BP Pulse Ox 04/07/18 13:44 101 H 21 114/88 98 04/07/18 13:30 92 H 17 98 04/07/18 13:03 86 15 110/78 96 04/07/18 13:00 86 119/68 97 04/07/18 12:30 80 19 96 04/07/18 12:00 81 106/69 96 04/07/18 11:33 81 113/76 97 04/07/18 11:32 84 23 114/76 97 04/07/18 11:30 55 L 25 H 95 Intake and Output (Last 8hrs): Intake & Output 04/07/18 04/07/18 04/07/18 06:59 14:59 22:59 Intake Total 2040 Output Total 950 Balance 1090 Intake: IV 2040 Right Hand 2040 Output: Urine 950 Urine, Voided 950 Other: # Voids Urine, Voided 3 # Bowel Movements 2 - Physical Exam Head: Positive for: Atraumatic, Normocephalic Pupils: Positive for: PERRL Extroacular Muscles: Positive for: EOMI Conjunctiva: Positive for: Normal Mouth: Positive for: Moist Mucous Membranes Respiratory/Chest: Positive for: Clear to Auscultation, Good Air Exchange. Negative for: Respiratory Distress, Accessory Muscle Use, Wheezes, Decreased Breath Sounds Cardiovascular: Positive for: Regular Rate and Rhythm, Normal S1, S2. Negative for: Murmurs Abdomen: Positive for: Normal Bowel Sounds. Negative for: Tenderness, Distention, Peritoneal Signs Upper Extremity: Positive for: Normal Inspection. Negative for: Edema Lower Extremity: Positive for: Normal Inspection, NORMAL PULSES. Negative for: Edema, CALF TENDERNESS Neurological: Positive for: GCS=15, CN II-XII Intact, Speech Normal Skin: Positive for: Warm, Dry, Normal Color Psychiatric: Positive for: Alert, Oriented x 3 - Medications Active Medications: Active Medications Generic Name Dose Route Start Last Admin Trade Name Romy PRN Reason Stop Dose Admin Dextrose 0 ml 04/06/18 16:08 Dextrose 50% Inj IV STAT PRN Hypoglycemia Protocol Protocol Dextrose 1,000 mls @ 0 mls/hr 04/06/18 16:08 Dextrose 5% In Water 1000 Ml IV .Q0M PRN Hypoglycemia Protocol Protocol Per Protocol Dextrose/Sodium Chloride 1,000 mls @ 150 mls/hr 04/06/18 18:15 04/07/18 09:38 Dextrose 5%/0.9% Ns 1000 Ml IV 150 mls/hr .Q6H40M HOPE Administration Insulin Human Lispro 0 units 04/06/18 16:30 04/07/18 12:00 Humalog Low SC 1 u ACHS HOPE Administration Protocol Pantoprazole Sodium 40 mg 04/07/18 10:00 04/07/18 09:41 Protonix Inj IVP 40 mg DAILY HOPE Administration - Patient Studies Lab Studies: Lab Studies 04/07/18 04/07/18 04/07/18 Range/Units 14:20 10:54 09:00 WBC (4.5-11.0) 10^3/ul RBC (3.5-6.1) 10^6/uL Hgb 11.2 L (14.0-18.0) g/dL Hct 34.2 L (42.0-52.0) % MCV (80.0-105.0) fl MCH (25.0-35.0) pg MCHC (31.0-37.0) g/dl RDW (11.5-14.5) % Plt Count (120.0-450.0) 10^3/uL MPV (7.0-11.0) fl Gran % (50.0-68.0) % Lymph % (Auto) (22.0-35.0) % Cooper % (Auto) (1.0-6.0) % Eos % (Auto) (1.5-5.0) % Baso % (Auto) (0.0-3.0) % Gran # (1.4-6.5) Lymph # (Auto) (1.2-3.4) Cooper # (Auto) (0.1-0.6) Eos # (Auto) (0.0-0.7) Baso # (Auto) (0.0-2.0) K/mm3 pO2 34 (30-55) mm/Hg VBG pH 7.36 (7.32-7.43) VBG pCO2 46.0 (40-60) VBG HCO3 26.0 (21-28) mmol/l VBG Total CO2 27.4 (22-28) mmol.L VBG O2 Sat (Calc) 71.9 H (40-65) % VBG Base Excess 0.1 (0.0-2.0) mmol/L VBG Potassium 3.9 (3.6-5.2) mmol/L Glucose 147 H (75-110) mg/dl Lactate 1.4 (0.7-2.1) mmol/L FiO2 21.0 % Sodium 139.0 (132-148) mmol/L Potassium (3.6-5.0) mmol/L Chloride 107.0 (98-107) mmol/L Carbon Dioxide (21-33) mmol/L Anion Gap (10-20) BUN (7-21) mg/dL Creatinine (0.8-1.5) mg/dl Est GFR ( Amer) Est GFR (Non-Af Amer) POC Glucose (mg/dL) 168 H (65-110) mg/dL Random Glucose (70-110) mg/dL Calcium (8.4-10.5) mg/dL Phosphorus (2.5-4.5) mg/dL Magnesium (1.7-2.2) mg/dL Total Bilirubin (0.2-1.3) mg/dL AST (17-59) U/L ALT (7-56) U/L Alkaline Phosphatase (38-126) U/L Troponin I ng/mL Total Protein (5.8-8.3) g/dL Albumin (3.0-4.8) g/dL Globulin gm/dL Albumin/Globulin Ratio (1.1-1.8) Venous Blood Potassium 3.9 (3.6-5.2) mmol/L Urine Color (YELLOW) Urine Appearance (CLEAR) Urine pH (4.7-8.0) Ur Specific Donald (1.005-1.035) Urine Protein (<30 mg/dL) mg/dL Urine Glucose (UA) (NEGATIVE) mg/dL Urine Ketones (NEGATIVE) mg/dL Urine Blood (NEGATIVE) Urine Nitrate (NEGATIVE) Urine Bilirubin (NEGATIVE) Urine Urobilinogen (<1 E.U./dL) E.U./dL Ur Leukocyte Esterase (NEGATIVE) Anup/uL 04/07/18 04/07/18 04/07/18 Range/Units 09:00 08:30 07:38 WBC 6.1 (4.5-11.0) 10^3/ul RBC 3.95 (3.5-6.1) 10^6/uL Hgb 11.9 L (14.0-18.0) g/dL Hct 35.5 L (42.0-52.0) % MCV 89.9 (80.0-105.0) fl MCH 30.1 (25.0-35.0) pg MCHC 33.5 (31.0-37.0) g/dl RDW 13.0 (11.5-14.5) % Plt Count 142 (120.0-450.0) 10^3/uL MPV 9.5 (7.0-11.0) fl Gran % (50.0-68.0) % Lymph % (Auto) (22.0-35.0) % Cooper % (Auto) (1.0-6.0) % Eos % (Auto) (1.5-5.0) % Baso % (Auto) (0.0-3.0) % Gran # (1.4-6.5) Lymph # (Auto) (1.2-3.4) Cooper # (Auto) (0.1-0.6) Eos # (Auto) (0.0-0.7) Baso # (Auto) (0.0-2.0) K/mm3 pO2 (30-55) mm/Hg VBG pH (7.32-7.43) VBG pCO2 (40-60) VBG HCO3 (21-28) mmol/l VBG Total CO2 (22-28) mmol.L VBG O2 Sat (Calc) (40-65) % VBG Base Excess (0.0-2.0) mmol/L VBG Potassium (3.6-5.2) mmol/L Glucose (75-110) mg/dl Lactate (0.7-2.1) mmol/L FiO2 % Sodium (132-148) mmol/L Potassium (3.6-5.0) mmol/L Chloride (98-107) mmol/L Carbon Dioxide (21-33) mmol/L Anion Gap (10-20) BUN (7-21) mg/dL Creatinine (0.8-1.5) mg/dl Est GFR ( Amer) Est GFR (Non-Af Amer) POC Glucose (mg/dL) 144 H (65-110) mg/dL Random Glucose (70-110) mg/dL Calcium (8.4-10.5) mg/dL Phosphorus (2.5-4.5) mg/dL Magnesium (1.7-2.2) mg/dL Total Bilirubin (0.2-1.3) mg/dL AST (17-59) U/L ALT (7-56) U/L Alkaline Phosphatase (38-126) U/L Troponin I < 0.01 ng/mL Total Protein (5.8-8.3) g/dL Albumin (3.0-4.8) g/dL Globulin gm/dL Albumin/Globulin Ratio (1.1-1.8) Venous Blood Potassium (3.6-5.2) mmol/L Urine Color (YELLOW) Urine Appearance (CLEAR) Urine pH (4.7-8.0) Ur Specific Donald (1.005-1.035) Urine Protein (<30 mg/dL) mg/dL Urine Glucose (UA) (NEGATIVE) mg/dL Urine Ketones (NEGATIVE) mg/dL Urine Blood (NEGATIVE) Urine Nitrate (NEGATIVE) Urine Bilirubin (NEGATIVE) Urine Urobilinogen (<1 E.U./dL) E.U./dL Ur Leukocyte Esterase (NEGATIVE) Anup/uL 04/07/18 04/07/18 04/06/18 Range/Units 04:15 04:15 22:39 WBC 7.0 8.7 (4.5-11.0) 10^3/ul RBC 3.86 4.16 (3.5-6.1) 10^6/uL Hgb 11.7 L 12.5 L (14.0-18.0) g/dL Hct 34.4 L 37.0 L (42.0-52.0) % MCV 89.1 88.9 (80.0-105.0) fl MCH 30.3 30.0 (25.0-35.0) pg MCHC 34.0 33.8 (31.0-37.0) g/dl RDW 12.9 13.0 (11.5-14.5) % Plt Count 137 152 (120.0-450.0) 10^3/uL MPV 10.1 9.6 (7.0-11.0) fl Gran % (50.0-68.0) % Lymph % (Auto) (22.0-35.0) % Cooper % (Auto) (1.0-6.0) % Eos % (Auto) (1.5-5.0) % Baso % (Auto) (0.0-3.0) % Gran # (1.4-6.5) Lymph # (Auto) (1.2-3.4) Cooper # (Auto) (0.1-0.6) Eos # (Auto) (0.0-0.7) Baso # (Auto) (0.0-2.0) K/mm3 pO2 (30-55) mm/Hg VBG pH (7.32-7.43) VBG pCO2 (40-60) VBG HCO3 (21-28) mmol/l VBG Total CO2 (22-28) mmol.L VBG O2 Sat (Calc) (40-65) % VBG Base Excess (0.0-2.0) mmol/L VBG Potassium (3.6-5.2) mmol/L Glucose (75-110) mg/dl Lactate (0.7-2.1) mmol/L FiO2 % Sodium 139 (132-148) mmol/L Potassium 4.2 (3.6-5.0) mmol/L Chloride 107 (98-107) mmol/L Carbon Dioxide 25 (21-33) mmol/L Anion Gap 11 (10-20) BUN 16 (7-21) mg/dL Creatinine 0.7 L (0.8-1.5) mg/dl Est GFR ( Amer) > 60 Est GFR (Non-Af Amer) > 60 POC Glucose (mg/dL) (65-110) mg/dL Random Glucose 129 H (70-110) mg/dL Calcium 7.9 L (8.4-10.5) mg/dL Phosphorus 3.2 (2.5-4.5) mg/dL Magnesium 2.1 (1.7-2.2) mg/dL Total Bilirubin 0.7 (0.2-1.3) mg/dL AST 27 (17-59) U/L ALT 33 (7-56) U/L Alkaline Phosphatase 31 L D (38-126) U/L Troponin I ng/mL Total Protein 5.8 (5.8-8.3) g/dL Albumin 3.3 (3.0-4.8) g/dL Globulin 2.5 gm/dL Albumin/Globulin Ratio 1.3 (1.1-1.8) Venous Blood Potassium (3.6-5.2) mmol/L Urine Color (YELLOW) Urine Appearance (CLEAR) Urine pH (4.7-8.0) Ur Specific Donald (1.005-1.035) Urine Protein (<30 mg/dL) mg/dL Urine Glucose (UA) (NEGATIVE) mg/dL Urine Ketones (NEGATIVE) mg/dL Urine Blood (NEGATIVE) Urine Nitrate (NEGATIVE) Urine Bilirubin (NEGATIVE) Urine Urobilinogen (<1 E.U./dL) E.U./dL Ur Leukocyte Esterase (NEGATIVE) Anup/uL 04/06/18 04/06/18 04/06/18 Range/Units 22:11 18:27 15:48 WBC 9.5 (4.5-11.0) 10^3/ul RBC 4.57 (3.5-6.1) 10^6/uL Hgb 13.7 L D (14.0-18.0) g/dL Hct 40.6 L (42.0-52.0) % MCV 88.8 (80.0-105.0) fl MCH 30.0 (25.0-35.0) pg MCHC 33.7 (31.0-37.0) g/dl RDW 12.9 (11.5-14.5) % Plt Count 150 (120.0-450.0) 10^3/uL MPV 9.9 (7.0-11.0) fl Gran % 69.3 H (50.0-68.0) % Lymph % (Auto) 26.3 (22.0-35.0) % Cooper % (Auto) 4.2 (1.0-6.0) % Eos % (Auto) 0.1 L (1.5-5.0) % Baso % (Auto) 0.1 (0.0-3.0) % Gran # 6.60 H (1.4-6.5) Lymph # (Auto) 2.5 (1.2-3.4) Cooper # (Auto) 0.4 (0.1-0.6) Eos # (Auto) 0.0 (0.0-0.7) Baso # (Auto) 0.01 (0.0-2.0) K/mm3 pO2 (30-55) mm/Hg VBG pH (7.32-7.43) VBG pCO2 (40-60) VBG HCO3 (21-28) mmol/l VBG Total CO2 (22-28) mmol.L VBG O2 Sat (Calc) (40-65) % VBG Base Excess (0.0-2.0) mmol/L VBG Potassium (3.6-5.2) mmol/L Glucose (75-110) mg/dl Lactate (0.7-2.1) mmol/L FiO2 % Sodium (132-148) mmol/L Potassium (3.6-5.0) mmol/L Chloride (98-107) mmol/L Carbon Dioxide (21-33) mmol/L Anion Gap (10-20) BUN (7-21) mg/dL Creatinine (0.8-1.5) mg/dl Est GFR ( Amer) Est GFR (Non-Af Amer) POC Glucose (mg/dL) 138 H (65-110) mg/dL Random Glucose (70-110) mg/dL Calcium (8.4-10.5) mg/dL Phosphorus (2.5-4.5) mg/dL Magnesium (1.7-2.2) mg/dL Total Bilirubin (0.2-1.3) mg/dL AST (17-59) U/L ALT (7-56) U/L Alkaline Phosphatase (38-126) U/L Troponin I ng/mL Total Protein (5.8-8.3) g/dL Albumin (3.0-4.8) g/dL Globulin gm/dL Albumin/Globulin Ratio (1.1-1.8) Venous Blood Potassium (3.6-5.2) mmol/L Urine Color Light yellow (YELLOW) Urine Appearance Clear (CLEAR) Urine pH 6.0 (4.7-8.0) Ur Specific Donald 1.020 (1.005-1.035) Urine Protein Negative (<30 mg/dL) mg/dL Urine Glucose (UA) >=1000 (NEGATIVE) mg/dL Urine Ketones 15 H (NEGATIVE) mg/dL Urine Blood Negative (NEGATIVE) Urine Nitrate Negative (NEGATIVE) Urine Bilirubin Negative (NEGATIVE) Urine Urobilinogen 0.2 (<1 E.U./dL) E.U./dL Ur Leukocyte Esterase Negative (NEGATIVE) Anup/uL Laboratory Results - last 24 hr 04/06/18 04/06/18 04/06/18 15:48 18:27 22:11 WBC 9.5 RBC 4.57 Hgb 13.7 L D Hct 40.6 L MCV 88.8 MCH 30.0 MCHC 33.7 RDW 12.9 Plt Count 150 MPV 9.9 Gran % 69.3 H Lymph % (Auto) 26.3 Cooper % (Auto) 4.2 Eos % (Auto) 0.1 L Baso % (Auto) 0.1 Gran # 6.60 H Lymph # (Auto) 2.5 Cooper # (Auto) 0.4 Eos # (Auto) 0.0 Baso # (Auto) 0.01 pO2 VBG pH VBG pCO2 VBG HCO3 VBG Total CO2 VBG O2 Sat (Calc) VBG Base Excess VBG Potassium Glucose Lactate FiO2 Sodium Potassium Chloride Carbon Dioxide Anion Gap BUN Creatinine Est GFR ( Amer) Est GFR (Non-Af Amer) POC Glucose (mg/dL) 138 H Random Glucose Calcium Phosphorus Magnesium Total Bilirubin AST ALT Alkaline Phosphatase Troponin I Total Protein Albumin Globulin Albumin/Globulin Ratio Venous Blood Potassium Urine Color Light yellow Urine Appearance Clear Urine pH 6.0 Ur Specific Donald 1.020 Urine Protein Negative Urine Glucose (UA) >=1000 Urine Ketones 15 H Urine Blood Negative Urine Nitrate Negative Urine Bilirubin Negative Urine Urobilinogen 0.2 Ur Leukocyte Esterase Negative 04/06/18 04/07/18 04/07/18 22:39 04:15 04:15 WBC 8.7 7.0 RBC 4.16 3.86 Hgb 12.5 L 11.7 L Hct 37.0 L 34.4 L MCV 88.9 89.1 MCH 30.0 30.3 MCHC 33.8 34.0 RDW 13.0 12.9 Plt Count 152 137 MPV 9.6 10.1 Gran % Lymph % (Auto) Cooper % (Auto) Eos % (Auto) Baso % (Auto) Gran # Lymph # (Auto) Cooper # (Auto) Eos # (Auto) Baso # (Auto) pO2 VBG pH VBG pCO2 VBG HCO3 VBG Total CO2 VBG O2 Sat (Calc) VBG Base Excess VBG Potassium Glucose Lactate FiO2 Sodium 139 Potassium 4.2 Chloride 107 Carbon Dioxide 25 Anion Gap 11 BUN 16 Creatinine 0.7 L Est GFR ( Amer) > 60 Est GFR (Non-Af Amer) > 60 POC Glucose (mg/dL) Random Glucose 129 H Calcium 7.9 L Phosphorus 3.2 Magnesium 2.1 Total Bilirubin 0.7 AST 27 ALT 33 Alkaline Phosphatase 31 L D Troponin I Total Protein 5.8 Albumin 3.3 Globulin 2.5 Albumin/Globulin Ratio 1.3 Venous Blood Potassium Urine Color Urine Appearance Urine pH Ur Specific Donald Urine Protein Urine Glucose (UA) Urine Ketones Urine Blood Urine Nitrate Urine Bilirubin Urine Urobilinogen Ur Leukocyte Esterase 04/07/18 04/07/18 04/07/18 07:38 08:30 09:00 WBC 6.1 RBC 3.95 Hgb 11.9 L Hct 35.5 L MCV 89.9 MCH 30.1 MCHC 33.5 RDW 13.0 Plt Count 142 MPV 9.5 Gran % Lymph % (Auto) Cooper % (Auto) Eos % (Auto) Baso % (Auto) Gran # Lymph # (Auto) Cooper # (Auto) Eos # (Auto) Baso # (Auto) pO2 VBG pH VBG pCO2 VBG HCO3 VBG Total CO2 VBG O2 Sat (Calc) VBG Base Excess VBG Potassium Glucose Lactate FiO2 Sodium Potassium Chloride Carbon Dioxide Anion Gap BUN Creatinine Est GFR ( Amer) Est GFR (Non-Af Amer) POC Glucose (mg/dL) 144 H Random Glucose Calcium Phosphorus Magnesium Total Bilirubin AST ALT Alkaline Phosphatase Troponin I < 0.01 Total Protein Albumin Globulin Albumin/Globulin Ratio Venous Blood Potassium Urine Color Urine Appearance Urine pH Ur Specific Donald Urine Protein Urine Glucose (UA) Urine Ketones Urine Blood Urine Nitrate Urine Bilirubin Urine Urobilinogen Ur Leukocyte Esterase 04/07/18 04/07/18 04/07/18 09:00 10:54 14:20 WBC RBC Hgb 11.2 L Hct 34.2 L MCV MCH MCHC RDW Plt Count MPV Gran % Lymph % (Auto) Cooper % (Auto) Eos % (Auto) Baso % (Auto) Gran # Lymph # (Auto) Cooper # (Auto) Eos # (Auto) Baso # (Auto) pO2 34 VBG pH 7.36 VBG pCO2 46.0 VBG HCO3 26.0 VBG Total CO2 27.4 VBG O2 Sat (Calc) 71.9 H VBG Base Excess 0.1 VBG Potassium 3.9 Glucose 147 H Lactate 1.4 FiO2 21.0 Sodium 139.0 Potassium Chloride 107.0 Carbon Dioxide Anion Gap BUN Creatinine Est GFR ( Amer) Est GFR (Non-Af Amer) POC Glucose (mg/dL) 168 H Random Glucose Calcium Phosphorus Magnesium Total Bilirubin AST ALT Alkaline Phosphatase Troponin I Total Protein Albumin Globulin Albumin/Globulin Ratio Venous Blood Potassium 3.9 Urine Color Urine Appearance Urine pH Ur Specific Donald Urine Protein Urine Glucose (UA) Urine Ketones Urine Blood Urine Nitrate Urine Bilirubin Urine Urobilinogen Ur Leukocyte Esterase Fingerstick Blood Sugar Results: 168 Review of Systems - Review of Systems All systems: reviewed and no additional remarkable complaints except Review of Systems: as per hPI Critical Care Progress Note - Nutrition Nutrition: Nutrition Category Date Time Status Liquid Diet [DIET] Diets 04/07/18 Lunch Ordered NPO Diet [DIET] Diets 04/07/18 Dinner Ordered Assessment/Plan - Assessment and Plan (Free Text) Assessment: 63 year old male with PMH HTN, HLD, DM, diverticular bleed (3 years ago), hemorrhoids, admitted to ICU for lower GI bleed: Neuro: AOx4. No changes in mental status. Cont to monitor. Respiratory: saturating well on NC. Maintain Spo2>96%. Cardio: trops neg x2. BP 130s/70s Maintain MAP>65 will hold home anti-HTN in setting of active bleed Stable. Monitor GI: protonix IV daily. NPO. 2 large bore IVs. Type and screen, Hgb 11.2 this afternoon. Serially trend H&H q6 [address] shows mildly dilated fluid filled colon without mechanical obstruction. GI bleeding scan positive for GI hemorrhage. Site of origin is ascending colon/ hepatic flexure- pooling seen beyond ano rectal junction. GI and surgery on board. Appreciate recs. Renal: BUN/Cr 16/0.7. Maintain euvolemia, replace lytes. ID: afebrile, no leukocytosis Heme: Hgb 11.2 (baseline 15). denies cp, no history of CAD. will monitor serially. PPX: Protonix, SCDs (in setting of GI bleed) Case seen and discussed with Dr Mathews. <Keon Mathews - Last Filed: 04/07/18 17:31> CCU Objective - Vital Signs / Intake & Output Vital Signs (Last 4 hours): Vital Signs Pulse Resp BP Pulse Ox 04/07/18 16:03 77 04/07/18 15:30 78 18 100/75 96 04/07/18 15:00 82 21 116/70 97 04/07/18 14:30 84 18 103/67 95 04/07/18 14:00 91 H 18 114/80 96 04/07/18 13:44 101 H 21 114/88 98 Intake and Output (Last 8hrs): Intake & Output 04/07/18 04/07/18 04/07/18 06:59 14:59 22:59 Intake Total 2040 Output Total 950 Balance 1090 Weight 179 lb 5 oz Intake: IV 2040 Right Hand 0 Output: Urine 950 Urine, Voided 950 Other: # Voids Urine, Voided 3 # Bowel Movements 2 - Medications Active Medications: Active Medications Generic Name Dose Route Start Last Admin Trade Name Freq PRN Reason Stop Dose Admin Dextrose 0 ml 04/06/18 16:08 Dextrose 50% Inj IV STAT PRN Hypoglycemia Protocol Protocol Dextrose 1,000 mls @ 0 mls/hr 04/06/18 16:08 Dextrose 5% In Water 1000 Ml IV .Q0M PRN Hypoglycemia Protocol Protocol Per Protocol Dextrose/Sodium Chloride 1,000 mls @ 150 mls/hr 04/06/18 18:15 04/07/18 16:35 Dextrose 5%/0.9% Ns 1000 Ml IV 150 mls/hr .Q6H40M H[facility] Administration Insulin Human Lispro 0 units 04/06/18 16:30 04/07/18 16:37 Humalog Low SC Not Given ACHS HOPE Protocol Pantoprazole Sodium 40 mg 04/07/18 10:00 04/07/18 09:41 Protonix Inj IVP 40 mg DAILY HOPE Administration - Patient Studies Lab Studies: Lab Studies 04/07/18 04/07/18 04/07/18 Range/Units 14:20 10:54 09:00 WBC (4.5-11.0) 10^3/ul RBC (3.5-6.1) 10^6/uL Hgb 11.2 L (14.0-18.0) g/dL Hct 34.2 L (42.0-52.0) % MCV (80.0-105.0) fl MCH (25.0-35.0) pg MCHC (31.0-37.0) g/dl RDW (11.5-14.5) % Plt Count (120.0-450.0) 10^3/uL MPV (7.0-11.0) fl Gran % (50.0-68.0) % Lymph % (Auto) (22.0-35.0) % Cooper % (Auto) (1.0-6.0) % Eos % (Auto) (1.5-5.0) % Baso % (Auto) (0.0-3.0) % Gran # (1.4-6.5) Lymph # (Auto) (1.2-3.4) Cooper # (Auto) (0.1-0.6) Eos # (Auto) (0.0-0.7) Baso # (Auto) (0.0-2.0) K/mm3 pO2 34 (30-55) mm/Hg VBG pH 7.36 (7.32-7.43) VBG pCO2 46.0 (40-60) VBG HCO3 26.0 (21-28) mmol/l VBG Total CO2 27.4 (22-28) mmol.L VBG O2 Sat (Calc) 71.9 H (40-65) % VBG Base Excess 0.1 (0.0-2.0) mmol/L VBG Potassium 3.9 (3.6-5.2) mmol/L Glucose 147 H (75-110) mg/dl Lactate 1.4 (0.7-2.1) mmol/L FiO2 21.0 % Sodium 139.0 (132-148) mmol/L Potassium (3.6-5.0) mmol/L Chloride 107.0 (98-107) mmol/L Carbon Dioxide (21-33) mmol/L Anion Gap (10-20) BUN (7-21) mg/dL Creatinine (0.8-1.5) mg/dl Est GFR ( Amer) Est GFR (Non-Af Amer) POC Glucose (mg/dL) 168 H (65-110) mg/dL Random Glucose (70-110) mg/dL Calcium (8.4-10.5) mg/dL Phosphorus (2.5-4.5) mg/dL Magnesium (1.7-2.2) mg/dL Total Bilirubin (0.2-1.3) mg/dL AST (17-59) U/L ALT (7-56) U/L Alkaline Phosphatase (38-126) U/L Troponin I ng/mL Total Protein (5.8-8.3) g/dL Albumin (3.0-4.8) g/dL Globulin gm/dL Albumin/Globulin Ratio (1.1-1.8) Venous Blood Potassium 3.9 (3.6-5.2) mmol/L 04/07/18 04/07/18 04/07/18 Range/Units 09:00 08:30 07:38 WBC 6.1 (4.5-11.0) 10^3/ul RBC 3.95 (3.5-6.1) 10^6/uL Hgb 11.9 L (14.0-18.0) g/dL Hct 35.5 L (42.0-52.0) % MCV 89.9 (80.0-105.0) fl MCH 30.1 (25.0-35.0) pg MCHC 33.5 (31.0-37.0) g/dl RDW 13.0 (11.5-14.5) % Plt Count 142 (120.0-450.0) 10^3/uL MPV 9.5 (7.0-11.0) fl Gran % (50.0-68.0) % Lymph % (Auto) (22.0-35.0) % Cooper % (Auto) (1.0-6.0) % Eos % (Auto) (1.5-5.0) % Baso % (Auto) (0.0-3.0) % Gran # (1.4-6.5) Lymph # (Auto) (1.2-3.4) Cooper # (Auto) (0.1-0.6) Eos # (Auto) (0.0-0.7) Baso # (Auto) (0.0-2.0) K/mm3 pO2 (30-55) mm/Hg VBG pH (7.32-7.43) VBG pCO2 (40-60) VBG HCO3 (21-28) mmol/l VBG Total CO2 (22-28) mmol.L VBG O2 Sat (Calc) (40-65) % VBG Base Excess (0.0-2.0) mmol/L VBG Potassium (3.6-5.2) mmol/L Glucose (75-110) mg/dl Lactate (0.7-2.1) mmol/L FiO2 % Sodium (132-148) mmol/L Potassium (3.6-5.0) mmol/L Chloride (98-107) mmol/L Carbon Dioxide (21-33) mmol/L Anion Gap (10-20) BUN (7-21) mg/dL Creatinine (0.8-1.5) mg/dl Est GFR ( Amer) Est GFR (Non-Af Amer) POC Glucose (mg/dL) 144 H (65-110) mg/dL Random Glucose (70-110) mg/dL Calcium (8.4-10.5) mg/dL Phosphorus (2.5-4.5) mg/dL Magnesium (1.7-2.2) mg/dL Total Bilirubin (0.2-1.3) mg/dL AST (17-59) U/L ALT (7-56) U/L Alkaline Phosphatase (38-126) U/L Troponin I < 0.01 ng/mL Total Protein (5.8-8.3) g/dL Albumin (3.0-4.8) g/dL Globulin gm/dL Albumin/Globulin Ratio (1.1-1.8) Venous Blood Potassium (3.6-5.2) mmol/L 04/07/18 04/07/18 04/06/18 Range/Units 04:15 04:15 22:39 WBC 7.0 8.7 (4.5-11.0) 10^3/ul RBC 3.86 4.16 (3.5-6.1) 10^6/uL Hgb 11.7 L 12.5 L (14.0-18.0) g/dL Hct 34.4 L 37.0 L (42.0-52.0) % MCV 89.1 88.9 (80.0-105.0) fl MCH 30.3 30.0 (25.0-35.0) pg MCHC 34.0 33.8 (31.0-37.0) g/dl RDW 12.9 13.0 (11.5-14.5) % Plt Count 137 152 (120.0-450.0) 10^3/uL MPV 10.1 9.6 (7.0-11.0) fl Gran % (50.0-68.0) % Lymph % (Auto) (22.0-35.0) % Cooper % (Auto) (1.0-6.0) % Eos % (Auto) (1.5-5.0) % Baso % (Auto) (0.0-3.0) % Gran # (1.4-6.5) Lymph # (Auto) (1.2-3.4) Cooper # (Auto) (0.1-0.6) Eos # (Auto) (0.0-0.7) Baso # (Auto) (0.0-2.0) K/mm3 pO2 (30-55) mm/Hg VBG pH (7.32-7.43) VBG pCO2 (40-60) VBG HCO3 (21-28) mmol/l VBG Total CO2 (22-28) mmol.L VBG O2 Sat (Calc) (40-65) % VBG Base Excess (0.0-2.0) mmol/L VBG Potassium (3.6-5.2) mmol/L Glucose (75-110) mg/dl Lactate (0.7-2.1) mmol/L FiO2 % Sodium 139 (132-148) mmol/L Potassium 4.2 (3.6-5.0) mmol/L Chloride 107 (98-107) mmol/L Carbon Dioxide 25 (21-33) mmol/L Anion Gap 11 (10-20) BUN 16 (7-21) mg/dL Creatinine 0.7 L (0.8-1.5) mg/dl Est GFR ( Amer) > 60 Est GFR (Non-Af Amer) > 60 POC Glucose (mg/dL) (65-110) mg/dL Random Glucose 129 H (70-110) mg/dL Calcium 7.9 L (8.4-10.5) mg/dL Phosphorus 3.2 (2.5-4.5) mg/dL Magnesium 2.1 (1.7-2.2) mg/dL Total Bilirubin 0.7 (0.2-1.3) mg/dL AST 27 (17-59) U/L ALT 33 (7-56) U/L Alkaline Phosphatase 31 L D (38-126) U/L Troponin I ng/mL Total Protein 5.8 (5.8-8.3) g/dL Albumin 3.3 (3.0-4.8) g/dL Globulin 2.5 gm/dL Albumin/Globulin Ratio 1.3 (1.1-1.8) Venous Blood Potassium (3.6-5.2) mmol/L 04/06/18 04/06/18 Range/Units 22:11 18:27 WBC 9.5 (4.5-11.0) 10^3/ul RBC 4.57 (3.5-6.1) 10^6/uL Hgb 13.7 L D (14.0-18.0) g/dL Hct 40.6 L (42.0-52.0) % MCV 88.8 (80.0-105.0) fl MCH 30.0 (25.0-35.0) pg MCHC 33.7 (31.0-37.0) g/dl RDW 12.9 (11.5-14.5) % Plt Count 150 (120.0-450.0) 10^3/uL MPV 9.9 (7.0-11.0) fl Gran % 69.3 H (50.0-68.0) % Lymph % (Auto) 26.3 (22.0-35.0) % Cooper % (Auto) 4.2 (1.0-6.0) % Eos % (Auto) 0.1 L (1.5-5.0) % Baso % (Auto) 0.1 (0.0-3.0) % Gran # 6.60 H (1.4-6.5) Lymph # (Auto) 2.5 (1.2-3.4) Cooper # (Auto) 0.4 (0.1-0.6) Eos # (Auto) 0.0 (0.0-0.7) Baso # (Auto) 0.01 (0.0-2.0) K/mm3 pO2 (30-55) mm/Hg VBG pH (7.32-7.43) VBG pCO2 (40-60) VBG HCO3 (21-28) mmol/l VBG Total CO2 (22-28) mmol.L VBG O2 Sat (Calc) (40-65) % VBG Base Excess (0.0-2.0) mmol/L VBG Potassium (3.6-5.2) mmol/L Glucose (75-110) mg/dl Lactate (0.7-2.1) mmol/L FiO2 % Sodium (132-148) mmol/L Potassium (3.6-5.0) mmol/L Chloride (98-107) mmol/L Carbon Dioxide (21-33) mmol/L Anion Gap (10-20) BUN (7-21) mg/dL Creatinine (0.8-1.5) mg/dl Est GFR ( Amer) Est GFR (Non-Af Amer) POC Glucose (mg/dL) 138 H (65-110) mg/dL Random Glucose (70-110) mg/dL Calcium (8.4-10.5) mg/dL Phosphorus (2.5-4.5) mg/dL Magnesium (1.7-2.2) mg/dL Total Bilirubin (0.2-1.3) mg/dL AST (17-59) U/L ALT (7-56) U/L Alkaline Phosphatase (38-126) U/L Troponin I ng/mL Total Protein (5.8-8.3) g/dL Albumin (3.0-4.8) g/dL Globulin gm/dL Albumin/Globulin Ratio (1.1-1.8) Venous Blood Potassium (3.6-5.2) mmol/L Laboratory Results - last 24 hr 04/06/18 04/06/18 04/06/18 18:27 22:11 22:39 WBC 9.5 8.7 RBC 4.57 4.16 Hgb 13.7 L D 12.5 L Hct 40.6 L 37.0 L MCV 88.8 88.9 MCH 30.0 30.0 MCHC 33.7 33.8 RDW 12.9 13.0 Plt Count 150 152 MPV 9.9 9.6 Gran % 69.3 H Lymph % (Auto) 26.3 Cooper % (Auto) 4.2 Eos % (Auto) 0.1 L Baso % (Auto) 0.1 Gran # 6.60 H Lymph # (Auto) 2.5 Cooper # (Auto) 0.4 Eos # (Auto) 0.0 Baso # (Auto) 0.01 pO2 VBG pH VBG pCO2 VBG HCO3 VBG Total CO2 VBG O2 Sat (Calc) VBG Base Excess VBG Potassium Glucose Lactate FiO2 Sodium Potassium Chloride Carbon Dioxide Anion Gap BUN Creatinine Est GFR ( Amer) Est GFR (Non-Af Amer) POC Glucose (mg/dL) 138 H Random Glucose Calcium Phosphorus Magnesium Total Bilirubin AST ALT Alkaline Phosphatase Troponin I Total Protein Albumin Globulin Albumin/Globulin Ratio Venous Blood Potassium 04/07/18 04/07/18 04/07/18 04:15 04:15 07:38 WBC 7.0 RBC 3.86 Hgb 11.7 L Hct 34.4 L MCV 89.1 MCH 30.3 MCHC 34.0 RDW 12.9 Plt Count 137 MPV 10.1 Gran % Lymph % (Auto) Cooper % (Auto) Eos % (Auto) Baso % (Auto) Gran # Lymph # (Auto) Cooper # (Auto) Eos # (Auto) Baso # (Auto) pO2 VBG pH VBG pCO2 VBG HCO3 VBG Total CO2 VBG O2 Sat (Calc) VBG Base Excess VBG Potassium Glucose Lactate FiO2 Sodium 139 Potassium 4.2 Chloride 107 Carbon Dioxide 25 Anion Gap 11 BUN 16 Creatinine 0.7 L Est GFR ( Amer) > 60 Est GFR (Non-Af Amer) > 60 POC Glucose (mg/dL) 144 H Random Glucose 129 H Calcium 7.9 L Phosphorus 3.2 Magnesium 2.1 Total Bilirubin 0.7 AST 27 ALT 33 Alkaline Phosphatase 31 L D Troponin I Total Protein 5.8 Albumin 3.3 Globulin 2.5 Albumin/Globulin Ratio 1.3 Venous Blood Potassium 04/07/18 04/07/18 04/07/18 08:30 09:00 09:00 WBC 6.1 RBC 3.95 Hgb 11.9 L Hct 35.5 L MCV 89.9 MCH 30.1 MCHC 33.5 RDW 13.0 Plt Count 142 MPV 9.5 Gran % Lymph % (Auto) Cooper % (Auto) Eos % (Auto) Baso % (Auto) Gran # Lymph # (Auto) Cooper # (Auto) Eos # (Auto) Baso # (Auto) pO2 34 VBG pH 7.36 VBG pCO2 46.0 VBG HCO3 26.0 VBG Total CO2 27.4 VBG O2 Sat (Calc) 71.9 H VBG Base Excess 0.1 VBG Potassium 3.9 Glucose 147 H Lactate 1.4 FiO2 21.0 Sodium 139.0 Potassium Chloride 107.0 Carbon Dioxide Anion Gap BUN Creatinine Est GFR ( Amer) Est GFR (Non-Af Amer) POC Glucose (mg/dL) Random Glucose Calcium Phosphorus Magnesium Total Bilirubin AST ALT Alkaline Phosphatase Troponin I < 0.01 Total Protein Albumin Globulin Albumin/Globulin Ratio Venous Blood Potassium 3.9 04/07/18 04/07/18 10:54 14:20 WBC RBC Hgb 11.2 L Hct 34.2 L MCV MCH MCHC RDW Plt Count MPV Gran % Lymph % (Auto) Cooper % (Auto) Eos % (Auto) Baso % (Auto) Gran # Lymph # (Auto) Cooper # (Auto) Eos # (Auto) Baso # (Auto) pO2 VBG pH VBG pCO2 VBG HCO3 VBG Total CO2 VBG O2 Sat (Calc) VBG Base Excess VBG Potassium Glucose Lactate FiO2 Sodium Potassium Chloride Carbon Dioxide Anion Gap BUN Creatinine Est GFR ( Amer) Est GFR (Non-Af Amer) POC Glucose (mg/dL) 168 H Random Glucose Calcium Phosphorus Magnesium Total Bilirubin AST ALT Alkaline Phosphatase Troponin I Total Protein Albumin Globulin Albumin/Globulin Ratio Venous Blood Potassium Critical Care Progress Note - Nutrition Nutrition: Nutrition Category Date Time Status NPO Diet [DIET] Diets 04/07/18 Dinner Ordered Attending/Attestation - Attestation I have personally seen and examined this patient.: Yes I have fully participated in the care of the patient.: Yes I have reviewed all pertinent clinical information: Yes Notes (Text): 04/07/18 17:[address] Mathews note
--- NOTE | 2018-04-07 15:48 | PN ---
DATE: 04/07/2018 SUBJECTIVE: He is sitting out of bed to chair. He is still having a full bedpan of bloody stool. He is still bleeding. He is comfortable, not dizzy. He is on IV fluids, insulin coverage, Protonix IV. PHYSICAL EXAMINATION: VITAL SIGNS: He has a 98.1 temperature, 76 pulse, 131/71 blood pressure, 19 respiratory rate, 97% O2 sat. HEENT: Head: Atraumatic, normocephalic. HEART: Regular rate. LUNGS: Clear to auscultation. ABDOMEN: Soft, nontender. Positive bowel sounds. EXTREMITIES: No edema. LABORATORY DATA: He did lose some blood. He went from a 15.8, he is down to 11.9 hemoglobin, he has a 6.1 white count, 35.5 hematocrit and 142 platelets. INR is 0.94. He has 139 sodium, potassium 4.2, BUN 60, creatinine 0.7, GFR is greater than 60, sugar is 129, calcium is 7.9, phosphorus 16.2, magnesium 2.1, total bili is 0.7, AST is 27, ALT is 33, alk phos is 31. Troponin I is less than 0.01, total protein is 5.8. He is being seen by the electrologist, Surgery and GI. We are watching him. Hopefully, slowly stop the blood in the bowels from a bleeding diverticulitis what I understand. We are going to try and keep the hemoglobin as high as we can make it. Hopefully, the bleeding would stop soon. Check the labs tomorrow. Discussed at length with the patient and . Thank you very much. He is here for GI bleed. César Duran DO
[2018-04-07 21:18] LABS: HEMOGLOBIN 9.8 g/dL (14.0-18.0)
[2018-04-08] MEDS: Dextrose 5%/0.9% NS 1,000 ML IV SCH ×4 (00:52→23:35)
[2018-04-08 03:13] LABS: HEMOGLOBIN 8.7 g/dL (14.0-18.0); MEAN CELL VOLUME 89.6 fl (80.0-105.0); MEAN CORPUSCULAR HEMOGLOBIN 30.2 pg (25.0-35.0); MEAN CORPUSCULAR HGB CONC 33.7 g/dl (31.0-37.0); MEAN PLATELET VOLUME 9.6 fl (7.0-11.0); RBC 2.88 10^6/uL (3.5-6.1); RED CELL DISTRIBUTION WIDTH 13.1 % (11.5-14.5)
[2018-04-08 03:22] LABS: ALB/GLOB RATIO 1.3 (1.1-1.8); ALBUMIN 2.9 g/dL (3.0-4.8); ALT/SGPT 39 U/L (7-56); AST/SGOT 25 U/L (17-59); BLOOD UREA NITROGEN 12 mg/dL (7-21); CALCIUM 7.4 mg/dL (8.4-10.5); GFR NON-AFRICAN AMERICAN > 60
[2018-04-08] MEDS: Insulin Lispro (humaLOG) LOW Coverage SC SCH ×4 (07:40→22:45)
--- NOTE | 2018-04-08 08:14 | CP.PCM.PN ---
Subjective - Date & Time of Evaluation Date of Evaluation: 04/08/18 Time of Evaluation: 08:09 - Subjective Subjective: General Surgery Dr. Kohler Pt S&E @bedside. Pt had multiple bloody BMs yesterday though none overnight. Pt reports dizziness/lightheadedness when standing/OOB to chair. Pt denies abd pain , N/V, F/C. NPO. Objective - Vital Signs/Intake and Output Vital Signs (last 24 hours): Temp Pulse Resp BP Pulse Ox 98.5 F 65 17 123/77 98 04/07/18 16:50 04/08/18 07:30 04/08/18 07:30 04/08/18 07:00 04/08/18 07:30 Intake and Output: 04/08/18 04/08/18 06:59 18:59 Intake Total 1500 Output Total 700 Balance 800 - Medications Medications: Current Medications Dextrose (Dextrose 50% Inj) 0 ml IV STAT PRN; Protocol PRN Reason: Hypoglycemia Protocol Dextrose (Dextrose 5% In Water 1000 Ml) 1,000 mls @ 0 mls/hr IV .Q0M PRN; Protocol; Per Protocol PRN Reason: Hypoglycemia Protocol Dextrose/Sodium Chloride (Dextrose 5%/0.9% Ns 1000 Ml) 1,000 mls @ 150 mls/hr IV .Q6H40M [facility] Last Admin: 04/08/18 07:46 Dose: 150 mls/hr Insulin Human Lispro (Humalog Low) 0 units SC ACHS [facility] PRN Reason: Protocol Last Admin: 04/08/18 07:40 Dose: Not Given Pantoprazole Sodium (Protonix Inj) 40 mg IVP DAILY [facility] Last Admin: 04/07/18 09:41 Dose: 40 mg - Labs Labs: 04/08/18 03:00 04/08/18 03:00 PT 10.7 SECONDS (9.4-12.5) 04/06/18 13:45 INR 0.94 04/06/18 13:45 APTT 29.5 Seconds (25.1-36.5) 04/06/18 13:45 - Constitutional Appears: Non-toxic, No Acute Distress - Head Exam Head Exam: NORMAL INSPECTION - Eye Exam Eye Exam: Normal appearance - ENT Exam ENT Exam: Mucous Membranes Moist - Respiratory Exam Respiratory Exam: NORMAL BREATHING PATTERN. absent: Accessory Muscle Use, Respiratory Distress - Cardiovascular Exam Cardiovascular Exam: REGULAR RHYTHM. absent: Bradycardia, Tachycardia - GI/Abdominal Exam GI & Abdominal Exam: Soft. absent: Distended, Firm, Guarding, Tenderness, Rebound - Extremities Exam Extremities Exam: Normal Inspection - Neurological Exam Neurological Exam: Alert, Awake, Oriented x3 - Psychiatric Exam Psychiatric exam: Normal Affect, Normal Mood - Skin Skin Exam: Dry, Intact, Pallor, Warm Assessment and Plan - Assessment and Plan (Free Text) Assessment: 63 y/o M w/ lower GI bleeding likely 2/2 diverticulosis, Bleeding scan: hepatic flexure bleeding - recommending colonoscopy; f/u GI recs - transfuse 2 units pRBC for acute drop in Hgb - monitor bowel function - Q4-6 H/H until stable - NPO/IVF - monitor vitals Q4 - strict Is & Os - may need IR embolization vs surgery if continues to bleed - cont medical management per ICU Pt discussed w/ Dr. Jose F Avilez DO PGY3
--- NOTE | 2018-04-08 08:58 | PN ---
DATE: 04/08/2018 SUBJECTIVE: The patient is seen and examined at bedside. He is comfortable. He talks full sentences. He is not in respiratory or otherwise distress. No bowel movement since 01:00 p.m. yesterday. Hemoglobin dropped to 8.7. However, the patient remained asymptomatic. No loss of consciousness. No near-syncope. No chest pain. No shortness of breath. OBJECTIVE: VITAL SIGNS: Blood pressure 119/79, oxygen saturation 100% on room air, heart rate 85, respiratory rate 15. ENT: Head and neck atraumatic. LUNGS: Clear to auscultation bilaterally. HEART: Regular rhythm and rate. S1, S2 normal. ABDOMEN: Soft, nontender, nondistended. Bowel sounds present. MUSCULOSKELETAL: No C/C/E. NEUROLOGICAL: The patient moves all extremities spontaneously. SKIN: Moist. PSYCHIATRIC: The patient is alert, awake and oriented x3. LABORATORY DATA: WBC 6, hemoglobin 8.7 down from 9.8, platelet count 114. Sodium 140, potassium 4, chloride 110, carbon dioxide 26, BUN 12, creatinine 0.7, glucose 126, AST 25, ALT 39, total bilirubin 0.4. MEDICATIONS: Protonix 40 mg IV daily, regular insulin sliding scale low protocol, D5 normal saline 150 mL/hour. ASSESSMENT AND PLAN: This is 63-year-old gentleman who presented with lower GI bleed. As per GI, no plan for colonoscopy at present time. Conversation between Dr. Kohler and Dr. Alves to figure out further step is expected as per my conversation with Dr. Kohler yesterday. Meanwhile, the patient remains to be asymptomatic without lactic acidosis or signs of end-organ dysfunction. I would not transfuse PRBCs at present time and would maintain hemoglobin between 7 and 9 mg/dL range, provided, of course, that clinical situation is not changed. If no signs of ongoing bleeding today, we will consider transferring the patient to Med-Surg floor either later today or tomorrow morning. DVT, GI prophylaxes. Maintain euvolemia, euglycemia, normothermia and oxygen saturation more than 90%. The patient was cleared for clear liquids by GI Service. ccm time 40 min Keon Mathews MD MTDSarahi
--- NOTE | 2018-04-08 09:27 | CP.PCM.PN ---
<FranciscobibiadelineTorres - Last Filed: 04/08/18 09:50> Subjective - Date & Time of Evaluation Date of Evaluation: 04/08/18 Time of Evaluation: 09:23 - Subjective Subjective: GI Fellow PGY4, Patient states he is doing well. No complaints. Last BM was 1pm yesterday. Denies dizziness. Orthostatics performed by me supine 140/89 87 and standing 126/88 102. Discussed with surgical team; recommends colonoscopy prior to discharge. 5pt ROS neg except for above. Objective - Vital Signs/Intake and Output Vital Signs (last 24 hours): Temp Pulse Resp BP Pulse Ox 98.5 F 65 17 123/77 98 04/07/18 16:50 04/08/18 07:30 04/08/18 07:30 04/08/18 07:00 04/08/18 07:30 Intake and Output: 04/08/18 04/08/18 06:59 18:59 Intake Total 1500 Output Total 700 Balance 800 - Medications Medications: Current Medications Dextrose (Dextrose 50% Inj) 0 ml IV STAT PRN; Protocol PRN Reason: Hypoglycemia Protocol Dextrose (Dextrose 5% In Water 1000 Ml) 1,000 mls @ 0 mls/hr IV .Q0M PRN; Protocol; Per Protocol PRN Reason: Hypoglycemia Protocol Dextrose/Sodium Chloride (Dextrose 5%/0.9% Ns 1000 Ml) 1,000 mls @ 150 mls/hr IV .Q6H40M [facility] Last Admin: 04/08/18 07:46 Dose: 150 mls/hr Insulin Human Lispro (Humalog Low) 0 units SC ACHS [facility] PRN Reason: Protocol Last Admin: 04/08/18 07:40 Dose: Not Given Pantoprazole Sodium (Protonix Inj) 40 mg IVP DAILY [facility] Last Admin: 04/07/18 09:41 Dose: 40 mg - Labs Labs: 04/08/18 03:00 04/08/18 03:00 PT 10.7 SECONDS (9.4-12.5) 04/06/18 13:45 INR 0.94 04/06/18 13:45 APTT 29.5 Seconds (25.1-36.5) 04/06/18 13:45 - Constitutional Appears: Well, No Acute Distress - Head Exam Head Exam: NORMAL INSPECTION - Eye Exam Eye Exam: Normal appearance - ENT Exam ENT Exam: Mucous Membranes Moist - Respiratory Exam Respiratory Exam: Clear to Ausculation Bilateral, NORMAL BREATHING PATTERN - Cardiovascular Exam Cardiovascular Exam: REGULAR RHYTHM, +S1, +S2 Additional comments: Orthostatics Supine 140/89 87. Standing 126/88 100. - GI/Abdominal Exam GI & Abdominal Exam: Soft, Normal Bowel Sounds. absent: Tenderness - Extremities Exam Extremities Exam: Normal Inspection - Neurological Exam Neurological Exam: Alert, Awake, Oriented x3 - Psychiatric Exam Psychiatric exam: Normal Affect, Normal Mood - Skin Skin Exam: Dry, Normal Color Assessment and Plan - Assessment and Plan (Free Text) Assessment: 63M with history of diverticulosis presenting with acute GI bleed likely due to diverticular bleed #Acute blood loss due to likely diverticular bleed #Diverticulosis #Hemorrhoids #HTN #DM PLAN: -Bleeding scan shows likely hepatic flexure bleed. -Clinically, bleeding has stopped. Last BM 04/07/18 1 PM. Hb trending down, likely an indication of normalization of previous significant blood loss. -Orthostatics negative, asymptomatic at the time of my exam. -Blood products ordered per surgical team for dramatic change in Hb from presentation -Continue to monitor Hb, and BM -Okay to transfer out of ICU if he continues to be asymptomatic and Hb stable -Surgery on board, recommendations noted. -Okay to d/c ppi, no signs of upper GI bleed, no pressors, no major steroids, no mechanical ventilation, not taking previously -Okay to start CLD from GI perspective -Hold all anticoagulation, NSAIDs. -Must avoid constipation in the future. Recommend daily MiraLax as outpt titrated to 1 soft BM per day. -Note, if bleeding resumes, worsens, he would benefit from IR embolization. -Previous colonoscopy with Dr. Gonzalez one year ago. No planned procedures at this time as this is not emergent, and source of bleeding is established and no additional therapeutic value would be gained. Discussed with Dr. Alves. -Patient will need close follow up with Dr. Gonzalez at time of discharge. Patient understands. Discussed with Dr. Alves. Please see attending addendum. <Dina Alves - Last Filed: 04/08/18 12:21> Objective - Vital Signs/Intake and Output Vital Signs (last 24 hours): Temp Pulse Resp BP Pulse Ox 98.4 F 76 22 113/72 100 09/16/18 08:00 04/08/18 11:00 04/08/18 11:00 04/08/18 11:00 04/08/18 11:00 Intake and Output: 04/08/18 04/08/18 06:59 18:59 Intake Total 1500 Output Total 700 Balance 800 - Medications Medications: Current Medications Dextrose (Dextrose 50% Inj) 0 ml IV STAT PRN; Protocol PRN Reason: Hypoglycemia Protocol Dextrose (Dextrose 5% In Water 1000 Ml) 1,000 mls @ 0 mls/hr IV .Q0M PRN; Protocol; Per Protocol PRN Reason: Hypoglycemia Protocol Dextrose/Sodium Chloride (Dextrose 5%/0.9% Ns 1000 Ml) 1,000 mls @ 150 mls/hr IV .Q6H40M [facility] Last Admin: 04/08/18 07:46 Dose: 150 mls/hr Insulin Human Lispro (Humalog Low) 0 units SC ACHS [facility] PRN Reason: Protocol Last Admin: 04/08/18 07:40 Dose: Not Given Oxycodone/Acetaminophen (Percocet 2.5/325 Mg Tab) 1 tab PO Q6H PRN PRN Reason: Pain, moderate (4-7) Pantoprazole Sodium (Protonix Inj) 40 mg IVP DAILY [facility] Last Admin: 04/08/18 09:32 Dose: 40 mg - Labs Labs: 04/08/18 09:45 04/08/18 03:00 PT 10.7 SECONDS (9.4-12.5) 04/06/18 13:45 INR 0.94 04/06/18 13:45 APTT 29.5 Seconds (25.1-36.5) 04/06/18 13:45 Attending/Attestation - Attestation I have personally seen and examined this patient.: Yes I have fully participated in the care of the patient.: Yes I have reviewed all pertinent clinical information, including history, physical exam and plan: Yes Notes (Text): 04/08/18 12:19 This is a 63 yr old M with history of diverticulosis presenting with acute GI bleed due to diverticular bleed seen on nuclear bleeding scan in hepatic flexure and ascending colon which has resolved in the past 24 hrs. Scan was not reported by nuclear tech/radiologist and hence patient did not get IR embolization. Has outside GI with whom he had colonoscopy last year which showed extensive diverticulosis. Clear liquid diet and advance as tolerated. No orthostatics during our assessment in the micu. Discussed with the furnace loader and surgeon if patient bleeds again would recommend Ct angiogram and embolization. Currently no plan for colonoscopy unless has lower GI bleeding again- will plan on IR vs surgical option accordingly. Clear liquid diet.
--- NOTE | 2018-04-08 09:37 | PN ---
DATE: 04/08/2018 SUBJECTIVE: He is in the ICU with a lower GI bleed. Bleeding scan shows most likely from the hepatic flexure. Read by Dr. Richardson. Reviewed the films myself. There was immediate pooling in the rectum. There was in fact rapid transit from the hepatic flexure. Hemoglobin is persistently going down over the last 3 days from 15, now it is 8.7. The patient get out of the bed without feeling dizzy. I am opposed to doing the embolization. He is not bleeding enough, but he is consistently bleeding. I do not think the angiogram would show anything, but I do think a colonoscopy would be fruitful. We will discuss. Jamshid Kohler MD
[2018-04-08 10:13] LABS: HEMOGLOBIN 9.4 g/dL (14.0-18.0)
--- NOTE | 2018-04-08 10:35 | PN ---
DATE: 04/08/2018 SUBJECTIVE: I saw him sitting out of bed to chair in the Intensive Care Unit. He tells me he did not have anymore bloody bowel movements since yesterday. He slept well and he is comfortable. He is in good spirits. I want him to have a negative bowel movement and normal bowel movement that would be very important without any blood. PHYSICAL EXAMINATION: VITAL SIGNS: He has a 98.5 temp, 65 pulse, 123/77 blood pressure, 17 respiratory rate, 98% O2 sat on room air. HEENT: His head is atraumatic, normocephalic. HEART: Regular rate. LUNGS: Decreased breath sounds, but clear. ABDOMEN: Soft, nontender. Positive bowel sounds. EXTREMITIES: Have no edema. MEDICATIONS: He is currently on Dextrose, insulin and Protonix. Dextrose is IV. LABORATORY DATA: He has a 6 white count. His hemoglobin did drop to 8.7 from 15.8. If it drops below 8, I will transfuse him. He is hemodynamically stable even at 8.7. Hematocrit is 25.8, platelets of 114. 140 sodium, potassium 4, BUN is 12, creatinine 0.7, GFR is greater than 60, sugar is 12.6, calcium is 7.4, phosphorus 2.6, magnesium 2.1, total bili is 0.4. AST is 25, ALT is 39, alk phos 27, total protein is 5.2. Troponin I is less than 0.01. ASSESSMENT AND PLAN: As the lowest hemoglobin it has been, we will keep him in the Intensive Care Unit. He might need to be transfused again. I will check another CBC later today too. At 4 o'clock or maybe 3 o'clock, I will do another CBC. If that drop below 8, I am going to transfuse him and we are going to keep him in the Intensive Care Unit for right now. He is acutely bleeding. César Duran DO
[2018-04-08] MEDS ORDERED: Oxycodone/Acetaminophen 2.5/325 mg Tab PO PRN (10:40)
--- NOTE | 2018-04-08 14:02 | CP.CCUPN ---
<Annika Gonzalez - Last Filed: 04/08/18 13:57> CCU Subjective - Physician Review Subjective (Free Text): 04/08/18 13:57 Patient seen and examined at bedside. No acute events overnight. Patient's last bloody BM was yesterday afternoon at 1:30 PM. No further BMs. Reports mild dizziness upon getting OOB. Denies abdominal pain, nausea, vomiting, fevers, chills, chest pain, urinary complaints. States that he is hungry and would like to eat. CCU Objective - Vital Signs / Intake & Output Vital Signs (Last 4 hours): Vital Signs Pulse Resp BP Pulse Ox 04/08/18 11:00 76 22 113/72 100 04/08/18 10:30 74 17 99 04/08/18 10:00 82 15 108/77 100 Intake and Output (Last 8hrs): Intake & Output 04/07/18 04/08/18 04/08/18 22:59 06:59 14:59 Intake Total 1800 1500 Output Total 560 700 Balance 1240 800 Intake: IV 1800 1500 Right Antecubital 1800 1500 Oral 0 Output: Urine 560 700 Urine, Voided 560 700 Stool 0 Other: # Bowel Movements 4 - Physical Exam Head: Positive for: Atraumatic, Normocephalic Pupils: Positive for: PERRL Extroacular Muscles: Positive for: EOMI Conjunctiva: Positive for: Normal Mouth: Positive for: Moist Mucous Membranes Respiratory/Chest: Positive for: Clear to Auscultation, Good Air Exchange. Negative for: Respiratory Distress, Accessory Muscle Use, Wheezes, Decreased Breath Sounds Cardiovascular: Positive for: Regular Rate and Rhythm, Normal S1, S2. Negative for: Murmurs Abdomen: Positive for: Normal Bowel Sounds. Negative for: Tenderness, Distention, Peritoneal Signs Upper Extremity: Positive for: Normal Inspection. Negative for: Edema Lower Extremity: Positive for: Normal Inspection, NORMAL PULSES. Negative for: Edema, CALF TENDERNESS Neurological: Positive for: GCS=15, CN II-XII Intact, Speech Normal Skin: Positive for: Warm, Dry, Normal Color Psychiatric: Positive for: Alert, Oriented x 3 - Medications Active Medications: Active Medications Generic Name Dose Route Start Last Admin Trade Name Freq PRN Reason Stop Dose Admin Dextrose 0 ml 04/06/18 16:08 Dextrose 50% Inj IV STAT PRN Hypoglycemia Protocol Protocol Dextrose 1,000 mls @ 0 mls/hr 04/06/18 16:08 Dextrose 5% In Water 1000 Ml IV .Q0M PRN Hypoglycemia Protocol Protocol Per Protocol Dextrose/Sodium Chloride 1,000 mls @ 150 mls/hr 04/06/18 18:15 04/08/18 07:46 Dextrose 5%/0.9% Ns 1000 Ml IV 150 mls/hr .Q6H40M [facility] Administration Insulin Human Lispro 0 units 04/06/18 16:30 04/08/18 07:40 Humalog Low SC Not Given ACHS [facility] Protocol Oxycodone/Acetaminophen 1 tab 04/08/18 10:40 Percocet 2.5/325 Mg Tab PO Q6H PRN Pain, moderate (4-7) Pantoprazole Sodium 40 mg 04/07/18 10:00 04/08/18 09:32 Protonix Inj IVP 40 mg DAILY [facility] Administration - Patient Studies Lab Studies: Lab Studies 04/08/18 04/08/18 04/08/18 Range/Units 09:45 07:28 03:00 WBC 6.0 (4.5-11.0) 10^3/ul RBC 2.88 L (3.5-6.1) 10^6/uL Hgb 9.4 L 8.7 L (14.0-18.0) g/dL Hct 27.7 L 25.8 L (42.0-52.0) % MCV 89.6 (80.0-105.0) fl MCH 30.2 (25.0-35.0) pg MCHC 33.7 (31.0-37.0) g/dl RDW 13.1 (11.5-14.5) % Plt Count 114 L (120.0-450.0) 10^3/uL MPV 9.6 (7.0-11.0) fl Sodium (132-148) mmol/L Potassium (3.6-5.0) mmol/L Chloride (98-107) mmol/L Carbon Dioxide (21-33) mmol/L Anion Gap (10-20) BUN (7-21) mg/dL Creatinine (0.8-1.5) mg/dl Est GFR ( Amer) Est GFR (Non-Af Amer) POC Glucose (mg/dL) 156 H (65-110) mg/dL Random Glucose (70-110) mg/dL Calcium (8.4-10.5) mg/dL Phosphorus (2.5-4.5) mg/dL Magnesium (1.7-2.2) mg/dL Total Bilirubin (0.2-1.3) mg/dL AST (17-59) U/L ALT (7-56) U/L Alkaline Phosphatase (38-126) U/L Total Protein (5.8-8.3) g/dL Albumin (3.0-4.8) g/dL Globulin gm/dL Albumin/Globulin Ratio (1.1-1.8) 04/08/18 04/07/18 04/07/18 Range/Units 03:00 22:10 21:15 WBC (4.5-11.0) 10^3/ul RBC (3.5-6.1) 10^6/uL Hgb 9.8 L (14.0-18.0) g/dL Hct 29.6 L (42.0-52.0) % MCV (80.0-105.0) fl MCH (25.0-35.0) pg MCHC (31.0-37.0) g/dl RDW (11.5-14.5) % Plt Count (120.0-450.0) 10^3/uL MPV (7.0-11.0) fl Sodium 140 (132-148) mmol/L Potassium 4.0 (3.6-5.0) mmol/L Chloride 110 H (98-107) mmol/L Carbon Dioxide 26 (21-33) mmol/L Anion Gap 8 L (10-20) BUN 12 (7-21) mg/dL Creatinine 0.7 L (0.8-1.5) mg/dl Est GFR ( Amer) > 60 Est GFR (Non-Af Amer) > 60 POC Glucose (mg/dL) 136 H (65-110) mg/dL Random Glucose 126 H (70-110) mg/dL Calcium 7.4 L (8.4-10.5) mg/dL Phosphorus 2.6 (2.5-4.5) mg/dL Magnesium 2.1 (1.7-2.2) mg/dL Total Bilirubin 0.4 (0.2-1.3) mg/dL AST 25 (17-59) U/L ALT 39 (7-56) U/L Alkaline Phosphatase 27 L (38-126) U/L Total Protein 5.2 L (5.8-8.3) g/dL Albumin 2.9 L (3.0-4.8) g/dL Globulin 2.2 gm/dL Albumin/Globulin Ratio 1.3 (1.1-1.8) 04/07/18 04/07/18 Range/Units 16:17 14:20 WBC (4.5-11.0) 10^3/ul RBC (3.5-6.1) 10^6/uL Hgb 11.2 L (14.0-18.0) g/dL Hct 34.2 L (42.0-52.0) % MCV (80.0-105.0) fl MCH (25.0-35.0) pg MCHC (31.0-37.0) g/dl RDW (11.5-14.5) % Plt Count (120.0-450.0) 10^3/uL MPV (7.0-11.0) fl Sodium (132-148) mmol/L Potassium (3.6-5.0) mmol/L Chloride (98-107) mmol/L Carbon Dioxide (21-33) mmol/L Anion Gap (10-20) BUN (7-21) mg/dL Creatinine (0.8-1.5) mg/dl Est GFR ( Amer) Est GFR (Non-Af Amer) POC Glucose (mg/dL) 139 H (65-110) mg/dL Random Glucose (70-110) mg/dL Calcium (8.4-10.5) mg/dL Phosphorus (2.5-4.5) mg/dL Magnesium (1.7-2.2) mg/dL Total Bilirubin (0.2-1.3) mg/dL AST (17-59) U/L ALT (7-56) U/L Alkaline Phosphatase (38-126) U/L Total Protein (5.8-8.3) g/dL Albumin (3.0-4.8) g/dL Globulin gm/dL Albumin/Globulin Ratio (1.1-1.8) Laboratory Results - last 24 hr 04/07/18 04/07/18 04/07/18 14:20 16:17 21:15 WBC RBC Hgb 11.2 L 9.8 L Hct 34.2 L 29.6 L MCV MCH MCHC RDW Plt Count MPV Sodium Potassium Chloride Carbon Dioxide Anion Gap BUN Creatinine Est GFR ( Amer) Est GFR (Non-Af Amer) POC Glucose (mg/dL) 139 H Random Glucose Calcium Phosphorus Magnesium Total Bilirubin AST ALT Alkaline Phosphatase Total Protein Albumin Globulin Albumin/Globulin Ratio 04/07/18 04/08/18 04/08/18 22:10 03:00 03:00 WBC 6.0 RBC 2.88 L Hgb 8.7 L Hct 25.8 L MCV 89.6 MCH 30.2 MCHC 33.7 RDW 13.1 Plt Count 114 L MPV 9.6 Sodium 140 Potassium 4.0 Chloride 110 H Carbon Dioxide 26 Anion Gap 8 L BUN 12 Creatinine 0.7 L Est GFR ( Amer) > 60 Est GFR (Non-Af Amer) > 60 POC Glucose (mg/dL) 136 H Random Glucose 126 H Calcium 7.4 L Phosphorus 2.6 Magnesium 2.1 Total Bilirubin 0.4 AST 25 ALT 39 Alkaline Phosphatase 27 L Total Protein 5.2 L Albumin 2.9 L Globulin 2.2 Albumin/Globulin Ratio 1.3 04/08/18 04/08/18 07:28 09:45 WBC RBC Hgb 9.4 L Hct 27.7 L MCV MCH MCHC RDW Plt Count MPV Sodium Potassium Chloride Carbon Dioxide Anion Gap BUN Creatinine Est GFR ( Amer) Est GFR (Non-Af Amer) POC Glucose (mg/dL) 156 H Random Glucose Calcium Phosphorus Magnesium Total Bilirubin AST ALT Alkaline Phosphatase Total Protein Albumin Globulin Albumin/Globulin Ratio Fingerstick Blood Sugar Results: 156 Review of Systems - Review of Systems All systems: reviewed and no additional remarkable complaints except Review of Systems: as per HPI Critical Care Progress Note - Nutrition Nutrition: Nutrition Category Date Time Status Liquid Diet [DIET] Diets 04/08/18 Lunch Ordered Assessment/Plan - Assessment and Plan (Free Text) Assessment: 63 year old male with PMH HTN, HLD, DM, diverticular bleed (3 years ago), hemorrhoids, admitted to ICU for lower GI bleed: Neuro: AOx4. No changes in mental status. Cont to monitor. Respiratory: saturating well on NC. Maintain Spo2>96%. Cardio: trops neg x2. normotensive Maintain MAP>65 will hold home anti-HTN in setting of Gi bleed Stable. Monitor GI: protonix IV daily. NPO. 2 large bore IVs. Type and screen, Hgb 9.4 at 10 AM today Discussed case with GI and surgery. No acute intervention currently. Serially trend H&H q6 Abd pelvis [address] shows mildly dilated fluid filled colon without mechanical obstruction. GI bleeding scan positive for GI hemorrhage. Site of origin is ascending colon/ hepatic flexure- pooling seen beyond ano rectal junction. Renal: BUN/Cr 12/0.7. Maintain euvolemia, replace lytes. ID: afebrile, no leukocytosis Heme: Hgb 9.4 (baseline 15), likely a dilutional component as well. denies cp, no history of CAD. will monitor serially. PPX: Protonix, SCDs (in setting of GI bleed) Dispo: transferred to remote tele. Surgery/GI aware. Case seen and discussed with Dr Mathews. <Keon Mathews - Last Filed: 04/08/18 15:38> CCU Objective - Vital Signs / Intake & Output Vital Signs (Last 4 hours): Vital Signs Temp Pulse Resp BP Pulse Ox 04/08/18 14:00 83 18 126/84 100 04/08/18 13:30 86 100 04/08/18 13:00 71 17 112/65 98 04/08/18 12:30 80 18 99 04/08/18 12:00 98.3 F 81 19 118/76 100 Intake and Output (Last 8hrs): Intake & Output 04/08/18 04/08/18 04/08/18 06:59 14:59 22:59 Intake Total 1500 Output Total 700 Balance 800 Intake: IV 1500 Right Antecubital 1500 Oral 0 Output: Urine 700 Urine, Voided 700 Stool 0 - Medications Active Medications: Active Medications Generic Name Dose Route Start Last Admin Trade Name Freq PRN Reason Stop Dose Admin Dextrose 0 ml 04/06/18 16:08 Dextrose 50% Inj IV STAT PRN Hypoglycemia Protocol Protocol Dextrose 1,000 mls @ 0 mls/hr 04/06/18 16:08 Dextrose 5% In Water 1000 Ml IV .Q0M PRN Hypoglycemia Protocol Protocol Per Protocol Dextrose/Sodium Chloride 1,000 mls @ 150 mls/hr 04/06/18 18:15 04/08/18 07:46 Dextrose 5%/0.9% Ns 1000 Ml IV 150 mls/hr .Q6H40M [facility] Administration Insulin Human Lispro 0 units 04/06/18 16:30 04/08/18 12:00 Humalog Low SC Not Given ACHS [facility] Protocol Oxycodone/Acetaminophen 1 tab 04/08/18 10:40 Percocet 2.5/325 Mg Tab PO Q6H PRN Pain, moderate (4-7) Pantoprazole Sodium 40 mg 04/07/18 10:00 04/08/18 09:32 Protonix Inj IVP 40 mg DAILY [facility] Administration - Patient Studies Lab Studies: Lab Studies 04/08/18 04/08/18 04/08/18 Range/Units 14:46 14:30 09:45 WBC (4.5-11.0) 10^3/ul RBC (3.5-6.1) 10^6/uL Hgb 9.3 L 9.4 L (14.0-18.0) g/dL Hct 28.5 L 27.7 L (42.0-52.0) % MCV (80.0-105.0) fl MCH (25.0-35.0) pg MCHC (31.0-37.0) g/dl RDW (11.5-14.5) % Plt Count (120.0-450.0) 10^3/uL MPV (7.0-11.0) fl Sodium 141 (132-148) mmol/L Potassium 3.5 L (3.6-5.0) mmol/L Chloride 108 H (98-107) mmol/L Carbon Dioxide 24 (21-33) mmol/L Anion Gap 13 (10-20) BUN 9 (7-21) mg/dL Creatinine 0.7 L (0.8-1.5) mg/dl Est GFR ( Amer) > 60 Est GFR (Non-Af Amer) > 60 POC Glucose (mg/dL) (65-110) mg/dL Random Glucose 196 H (70-110) mg/dL Calcium 8.1 L (8.4-10.5) mg/dL Phosphorus (2.5-4.5) mg/dL Magnesium (1.7-2.2) mg/dL Total Bilirubin 0.4 (0.2-1.3) mg/dL AST 32 (17-59) U/L ALT 35 (7-56) U/L Alkaline Phosphatase 33 L D (38-126) U/L Total Protein 6.3 (5.8-8.3) g/dL Albumin 3.9 (3.0-4.8) g/dL Globulin 2.4 gm/dL Albumin/Globulin Ratio 1.6 (1.1-1.8) 04/08/18 04/08/18 04/08/18 Range/Units 07:28 03:00 03:00 WBC 6.0 (4.5-11.0) 10^3/ul RBC 2.88 L (3.5-6.1) 10^6/uL Hgb 8.7 L (14.0-18.0) g/dL Hct 25.8 L (42.0-52.0) % MCV 89.6 (80.0-105.0) fl MCH 30.2 (25.0-35.0) pg MCHC 33.7 (31.0-37.0) g/dl RDW 13.1 (11.5-14.5) % Plt Count 114 L (120.0-450.0) 10^3/uL MPV 9.6 (7.0-11.0) fl Sodium 140 (132-148) mmol/L Potassium 4.0 (3.6-5.0) mmol/L Chloride 110 H (98-107) mmol/L Carbon Dioxide 26 (21-33) mmol/L Anion Gap 8 L (10-20) BUN 12 (7-21) mg/dL Creatinine 0.7 L (0.8-1.5) mg/dl Est GFR ( Amer) > 60 Est GFR (Non-Af Amer) > 60 POC Glucose (mg/dL) 156 H (65-110) mg/dL Random Glucose 126 H (70-110) mg/dL Calcium 7.4 L (8.4-10.5) mg/dL Phosphorus 2.6 (2.5-4.5) mg/dL Magnesium 2.1 (1.7-2.2) mg/dL Total Bilirubin 0.4 (0.2-1.3) mg/dL AST 25 (17-59) U/L ALT 39 (7-56) U/L Alkaline Phosphatase 27 L (38-126) U/L Total Protein 5.2 L (5.8-8.3) g/dL Albumin 2.9 L (3.0-4.8) g/dL Globulin 2.2 gm/dL Albumin/Globulin Ratio 1.3 (1.1-1.8) 04/07/18 04/07/18 04/07/18 Range/Units 22:10 21:15 16:17 WBC (4.5-11.0) 10^3/ul RBC (3.5-6.1) 10^6/uL Hgb 9.8 L (14.0-18.0) g/dL Hct 29.6 L (42.0-52.0) % MCV (80.0-105.0) fl MCH (25.0-35.0) pg MCHC (31.0-37.0) g/dl RDW (11.5-14.5) % Plt Count (120.0-450.0) 10^3/uL MPV (7.0-11.0) fl Sodium (132-148) mmol/L Potassium (3.6-5.0) mmol/L Chloride (98-107) mmol/L Carbon Dioxide (21-33) mmol/L Anion Gap (10-20) BUN (7-21) mg/dL Creatinine (0.8-1.5) mg/dl Est GFR ( Amer) Est GFR (Non-Af Amer) POC Glucose (mg/dL) 136 H 139 H (65-110) mg/dL Random Glucose (70-110) mg/dL Calcium (8.4-10.5) mg/dL Phosphorus (2.5-4.5) mg/dL Magnesium (1.7-2.2) mg/dL Total Bilirubin (0.2-1.3) mg/dL AST (17-59) U/L ALT (7-56) U/L Alkaline Phosphatase (38-126) U/L Total Protein (5.8-8.3) g/dL Albumin (3.0-4.8) g/dL Globulin gm/dL Albumin/Globulin Ratio (1.1-1.8) Laboratory Results - last 24 hr 04/07/18 04/07/18 04/07/18 16:17 21:15 22:10 WBC RBC Hgb 9.8 L Hct 29.6 L MCV MCH MCHC RDW Plt Count MPV Sodium Potassium Chloride Carbon Dioxide Anion Gap BUN Creatinine Est GFR ( Amer) Est GFR (Non-Af Amer) POC Glucose (mg/dL) 139 H 136 H Random Glucose Calcium Phosphorus Magnesium Total Bilirubin AST ALT Alkaline Phosphatase Total Protein Albumin Globulin Albumin/Globulin Ratio 04/08/18 04/08/18 04/08/18 03:00 03:00 07:28 WBC 6.0 RBC 2.88 L Hgb 8.7 L Hct 25.8 L MCV 89.6 MCH 30.2 MCHC 33.7 RDW 13.1 Plt Count 114 L MPV 9.6 Sodium 140 Potassium 4.0 Chloride 110 H Carbon Dioxide 26 Anion Gap 8 L BUN 12 Creatinine 0.7 L Est GFR ( Amer) > 60 Est GFR (Non-Af Amer) > 60 POC Glucose (mg/dL) 156 H Random Glucose 126 H Calcium 7.4 L Phosphorus 2.6 Magnesium 2.1 Total Bilirubin 0.4 AST 25 ALT 39 Alkaline Phosphatase 27 L Total Protein 5.2 L Albumin 2.9 L Globulin 2.2 Albumin/Globulin Ratio 1.3 04/08/18 04/08/18 04/08/18 09:45 14:30 14:46 WBC RBC Hgb 9.4 L 9.3 L Hct 27.7 L 28.5 L MCV MCH MCHC RDW Plt Count MPV Sodium 141 Potassium 3.5 L Chloride 108 H Carbon Dioxide 24 Anion Gap 13 BUN 9 Creatinine 0.7 L Est GFR ( Amer) > 60 Est GFR (Non-Af Amer) > 60 POC Glucose (mg/dL) Random Glucose 196 H Calcium 8.1 L Phosphorus Magnesium Total Bilirubin 0.4 AST 32 ALT 35 Alkaline Phosphatase 33 L D Total Protein 6.3 Albumin 3.9 Globulin 2.4 Albumin/Globulin Ratio 1.6 Critical Care Progress Note - Nutrition Nutrition: Nutrition Category Date Time Status Liquid Diet [DIET] Diets 04/08/18 Lunch Ordered Attending/Attestation - Attestation I have personally seen and examined this patient.: Yes I have fully participated in the care of the patient.: Yes I have reviewed all pertinent clinical information: Yes Notes (Text): 04/08/18 15:[address] Mathews note
[2018-04-08 15:05] LABS: HEMOGLOBIN 9.3 g/dL (14.0-18.0)
[2018-04-08 15:11] LABS: ALB/GLOB RATIO 1.6 (1.1-1.8); ALBUMIN 3.9 g/dL (3.0-4.8); ALT/SGPT 35 U/L (7-56); AST/SGOT 32 U/L (17-59); BLOOD UREA NITROGEN 9 mg/dL (7-21); CALCIUM 8.1 mg/dL (8.4-10.5); GFR NON-AFRICAN AMERICAN > 60
[2018-04-08 19:47] LABS: HEMOGLOBIN 9.1 g/dL (14.0-18.0)
[2018-04-09 02:39] LABS: HEMOGLOBIN 8.4 g/dL (14.0-18.0)
[2018-04-09 06:52] LABS: HEMOGLOBIN 8.9 g/dL (14.0-18.0); MEAN CELL VOLUME 89.3 fl (80.0-105.0); MEAN CORPUSCULAR HEMOGLOBIN 29.8 pg (25.0-35.0); MEAN CORPUSCULAR HGB CONC 33.3 g/dl (31.0-37.0); MEAN PLATELET VOLUME 9.4 fl (7.0-11.0); RBC 2.99 10^6/uL (3.5-6.1); RED CELL DISTRIBUTION WIDTH 13.1 % (11.5-14.5)
[2018-04-09 07:17] LABS: ALB/GLOB RATIO 1.4 (1.1-1.8); ALBUMIN 3.3 g/dL (3.0-4.8); ALT/SGPT 37 U/L (7-56); AST/SGOT 30 U/L (17-59); BLOOD UREA NITROGEN 5 mg/dL (7-21); CALCIUM 7.9 mg/dL (8.4-10.5); GFR NON-AFRICAN AMERICAN > 60
--- NOTE | 2018-04-09 07:20 | CP.PCM.PN ---
<Willis Pinedahan - Last Filed: 04/09/18 14:27> Subjective - Date & Time of Evaluation Date of Evaluation: 04/09/18 Time of Evaluation: 07:16 - Subjective Subjective: GI Fellow PGY4 Patient is doing well. Reported brown stool. Denies CP, dizziness, SOB. He admits his hands feel swollen. 5pt ROS negative except for above. Objective - Vital Signs/Intake and Output Vital Signs (last 24 hours): Temp Pulse Resp BP Pulse Ox 98.5 F 83 9 L 132/77 97 04/09/18 04:00 04/09/18 06:00 04/08/18 21:51 04/08/18 21:51 04/08/18 22:00 Intake and Output: 04/09/18 04/09/18 06:59 18:59 Intake Total 1830 Output Total 2000 Balance -170 - Medications Medications: Current Medications Dextrose (Dextrose 50% Inj) 0 ml IV STAT PRN; Protocol PRN Reason: Hypoglycemia Protocol Docusate Sodium (Colace) 100 mg PO BID REPLACED BY [facility] Dextrose (Dextrose 5% In Water 1000 Ml) 1,000 mls @ 0 mls/hr IV .Q0M PRN; Protocol; Per Protocol PRN Reason: Hypoglycemia Protocol Insulin Human Lispro (Humalog Low) 0 units SC ACHS REPLACED BY [facility] PRN Reason: Protocol Last Admin: 04/08/18 22:45 Dose: Not Given Oxycodone/Acetaminophen (Percocet 2.5/325 Mg Tab) 1 tab PO Q6H PRN PRN Reason: Pain, moderate (4-7) Pantoprazole Sodium (Protonix Inj) 40 mg IVP DAILY REPLACED BY [facility] Last Admin: 04/08/18 09:32 Dose: 40 mg - Labs Labs: 04/09/18 05:30 04/08/18 14:46 PT 10.7 SECONDS (9.4-12.5) 04/06/18 13:45 INR 0.94 04/06/18 13:45 APTT 29.5 Seconds (25.1-36.5) 04/06/18 13:45 - Constitutional Appears: Well, No Acute Distress - Head Exam Head Exam: NORMAL INSPECTION - Eye Exam Eye Exam: Normal appearance - ENT Exam ENT Exam: Mucous Membranes Moist - Respiratory Exam Respiratory Exam: Clear to Ausculation Bilateral, NORMAL BREATHING PATTERN. absent: Wheezes - Cardiovascular Exam Cardiovascular Exam: REGULAR RHYTHM, +S1, +S2 - GI/Abdominal Exam GI & Abdominal Exam: Soft, Normal Bowel Sounds. absent: Tenderness - Neurological Exam Neurological Exam: Alert, Awake, Oriented x3 - Psychiatric Exam Psychiatric exam: Normal Affect, Normal Mood - Skin Skin Exam: Dry, Normal Color Assessment and Plan - Assessment and Plan (Free Text) Assessment: 63M with history of diverticulosis presenting with acute GI bleed likely due to diverticular bleed #Acute blood loss due to likely diverticular bleed #Diverticulosis #Hemorrhoids #HTN #DM PLAN: -Bleeding scan shows likely hepatic flexure bleed. -Clinically, bleeding has stopped. Hb stable. There is a significant component of hemodilution. -D/C IVF, tolerating diet. -Okay to transfer out of ICU if he continues to be asymptomatic and Hb stable -Surgery on board, recommendations noted. -Okay to d/c ppi, no signs of upper GI bleed, no pressors, no major steroids, no mechanical ventilation, not taking previously -Okay to start soft, low residue diet. -Hold all anticoagulation, NSAIDs. -Must avoid constipation in the future. Recommend daily MiraLax as outpt titrated to 1 soft BM per day. -Colace BID -Note, if bleeding resumes, worsens, he would benefit from IR embolization. -Previous colonoscopy with Dr. Gonzalez one year ago. No planned procedures at this time as this is not emergent, and source of bleeding is established and stable. -Dr. Gonzalez aware of patient and would like to to see patient at the end of this week in his office. Patient is aware and will schedule the appointment. -Recommend DVT prophylaxis, SCDs. -Ok to discharge patient from [facility]. <Андрей Louie - Last Filed: 04/09/18 14:33> Objective - Vital Signs/Intake and Output Vital Signs (last 24 hours): Temp Pulse Resp BP Pulse Ox 98.1 F 91 H 17 125/56 L 100 04/09/18 13:20 04/09/18 12:27 04/09/18 12:27 04/09/18 13:06 04/09/18 12:27 Intake and Output: 04/09/18 04/09/18 06:59 18:59 Intake Total 1830 560 Output Total 2000 1350 Balance -170 -790 - Medications Medications: Current Medications Dextrose (Dextrose 50% Inj) 0 ml IV STAT PRN; Protocol PRN Reason: Hypoglycemia Protocol Docusate Sodium (Colace) 100 mg PO BID REPLACED BY [facility] Last Admin: 04/09/18 09:31 Dose: 100 mg Dextrose (Dextrose 5% In Water 1000 Ml) 1,000 mls @ 0 mls/hr IV .Q0M PRN; Protocol; Per Protocol PRN Reason: Hypoglycemia Protocol Insulin Human Lispro (Humalog Low) 0 units SC ACHS [facility] PRN Reason: Protocol Last Admin: 04/09/18 13:09 Dose: Not Given Oxycodone/Acetaminophen (Percocet 2.5/325 Mg Tab) 1 tab PO Q6H PRN PRN Reason: Pain, moderate (4-7) Pantoprazole Sodium (Protonix Inj) 40 mg IVP DAILY REPLACED BY [facility] Last Admin: 04/09/18 09:32 Dose: 40 mg - Labs Labs: 04/09/18 05:30 04/09/18 05:30 PT 10.7 SECONDS (9.4-12.5) 04/06/18 13:45 INR 0.94 04/06/18 13:45 APTT 29.5 Seconds (25.1-36.5) 04/06/18 13:45 Attending/Attestation - Attestation I have personally seen and examined this patient.: Yes I have fully participated in the care of the patient.: Yes I have reviewed all pertinent clinical information, including history, physical exam and plan: Yes Notes (Text): 04/09/18 14:30 I have seen and examined patient with GI fellow. No acute events overnight, he is seen sitting at bedside and appears quite comfortable, present. He had a normal yellow colored bowel movement this morning, tolerating PO liquids. He denies abdominal pain, nausea, vomiting, fever/chills. Review of vitals from today are normal. DM / HTN Rectal bleeding, positive bleeding scan - likely secondary to known diverticular disease, recent colonoscopy 1 year prior - Advance diet as tolerated - H/H stable, continue to monitor - Patient will follow up with primary GI (Dr. Gonzalez) in office this week - No further planned GI intervention, can discharge home with subsequent outpatient follow up. Will sign off case, please reconsult as necessary, thank you. Discussed with Dr. Duran.
--- NOTE | 2018-04-09 08:22 | CP.PCM.PN ---
Subjective - Date & Time of Evaluation Date of Evaluation: 04/09/18 Time of Evaluation: 08:16 - Subjective Subjective: General Surgery - Dr. Kohler pt S&E. Pt had 1 episode dark brown BM which he feels may have had small amount of residual blood in it, otherwise no events overnight. Pt reports his dizziness has resolved but he has not attempted to get OOB yet today. He denies any Fevers/Chills, SOB/Chest pain, nausea/Vomiting. He is tolerating full liquid diet. Objective - Vital Signs/Intake and Output Vital Signs (last 24 hours): Temp Pulse Resp BP Pulse Ox 98.5 F 83 9 L 132/77 97 04/09/18 04:00 04/09/18 06:00 04/08/18 21:51 04/08/18 21:51 04/08/18 22:00 Intake and Output: 04/09/18 04/09/18 06:59 18:59 Intake Total 1830 Output Total 2000 Balance -170 - Medications Medications: Current Medications Dextrose (Dextrose 50% Inj) 0 ml IV STAT PRN; Protocol PRN Reason: Hypoglycemia Protocol Docusate Sodium (Colace) 100 mg PO BID [facility] Dextrose (Dextrose 5% In Water 1000 Ml) 1,000 mls @ 0 mls/hr IV .Q0M PRN; Protocol; Per Protocol PRN Reason: Hypoglycemia Protocol Insulin Human Lispro (Humalog Low) 0 units SC ACHS [facility] PRN Reason: Protocol Last Admin: 04/08/18 22:45 Dose: Not Given Oxycodone/Acetaminophen (Percocet 2.5/325 Mg Tab) 1 tab PO Q6H PRN PRN Reason: Pain, moderate (4-7) Pantoprazole Sodium (Protonix Inj) 40 mg IVP DAILY [facility] Last Admin: 04/08/18 09:32 Dose: 40 mg - Labs Labs: 04/09/18 05:30 04/09/18 05:30 PT 10.7 SECONDS (9.4-12.5) 04/06/18 13:45 INR 0.94 04/06/18 13:45 APTT 29.5 Seconds (25.1-36.5) 04/06/18 13:45 - Constitutional Appears: No Acute Distress - Head Exam Head Exam: ATRAUMATIC, NORMAL INSPECTION, NORMOCEPHALIC - Eye Exam Eye Exam: Normal appearance - Respiratory Exam Respiratory Exam: NORMAL BREATHING PATTERN. absent: Respiratory Distress - Cardiovascular Exam Cardiovascular Exam: REGULAR RHYTHM - GI/Abdominal Exam GI & Abdominal Exam: Soft. absent: Distended, Guarding, Tenderness, Hyperactive Bowel Sounds, Rebound - Neurological Exam Neurological Exam: Alert, Oriented x3 - Psychiatric Exam Psychiatric exam: Normal Mood - Skin Skin Exam: Dry, Intact Assessment and Plan - Assessment and Plan (Free Text) Assessment: 63M w/ LGIB, seen at hepatic flexure on bleeding scan, likely 2/2 diverticulosis - Full liquid diet - H/H stable, repeat CBC BID, transfuse PRN - Monitor BMs - Recommend Colonoscopy if further bleeding occurs - F/U GI - Medical management per ICU DW Dr. Jose F Steve PGY4
[2018-04-09] MEDS: Insulin Lispro (humaLOG) LOW Coverage SC SCH ×2 (09:31→13:09)
--- NOTE | 2018-04-09 11:34 | PN ---
DATE: 04/09/2018 SUBJECTIVE: I saw him in the Intensive Care Unit. He is resting comfortably in bed. He slept well. He tells me he is having tarry stools, but they are not bloody anymore. He is comfortable. No abdominal pain. No chest pain or shortness of breath. PHYSICAL EXAMINATION: VITAL SIGNS: He has a 98.8 temp, 82 pulse, 121/79 blood pressure, 18 respiratory rate, 98% O2 sat on room air. HEENT: Head is atraumatic, normocephalic. He is eating. He is comfortable. HEART: Regular rate. LUNGS: Clear to auscultation. ABDOMEN: Soft, obese, nontender. Positive bowel sounds. No guarding, no rebound. No CVA tenderness. EXTREMITIES: Have no edema. MEDICATIONS: He is currently on Colace, dextrose, insulin, Percocet, Protonix IV. LABORATORY DATA: He has 6 white count, hemoglobin is up to 8.9, a little bit better, 26.7 hematocrit with 134 platelets. I do not think he is bleeding anymore. I think he is getting stable with his hemoglobin. He has 142 sodium, potassium is 3.5, we are going to replace the potassium, BUN 5, creatinine 0.7, GFR is greater than 60, sugar is 126, calcium is 7.9, phosphorus 3.1, magnesium 1.9, total bili is 0.3. AST is 30, ALT is 37, alk phos is 30. ASSESSMENT AND PLAN: He is being seen by the surgeon, GI, the weasand trimmer, and I am hoping in the next 24 hours, we could be discharging him home if his hemoglobin stays well. He will be transferred out of the Intensive Care Unit today and hopefully one day on the floor, we can discharge him tomorrow if his hemoglobin begins to improve. He will have labs tomorrow. He is here for acute gastrointestinal bleed. He lost 7 g of hemoglobin. César Duran DO
[2018-04-09] MEDS ORDERED: Potassium Chloride 20 mEq ER Tab PO ONE (12:55)
--- NOTE | 2018-04-09 13:15 | PN ---
DATE: 04/09/2018 SUBJECTIVE: He is in the Intensive Care Unit. He slept fairly well. He is doing okay. He had a very black tarry bowel movement, it was not bright red blood like the first two, but it was black and tarry. LABORATORY DATA: He has 6 white count, 8.9 hemoglobin, 26.7 hematocrit with 134 platelets. He has 142 sodium; potassium 3.4, I have to replace potassium; BUN 5; creatinine 0.7. GFR is greater than 60. Sugar is 126, calcium is 7.9, phosphorus 3.1, magnesium 1.9, total bili is 0.3. AST is 30, ALT is 37, alk phos 30, total protein is 5.7. 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 I believe his bleeding is slowly stopping. He will be transferred out of the Intensive Care Unit to Remote Telemetry. If he continues to have improvement in bowel movements and his hemoglobin goes up a little bit by tomorrow, he being discharged. He had a diverticular bleed. Hemoglobin was 15, it went down to an 8, it is up to 8.9. He has been on a no-seed, no-nut diet, he knows that and hopefully we will get him out of the unit today to Remote Tele. César Duran DO DAVE
[2018-04-09 13:20] VITALS: BP 125/56; PULSE 91; RESP 17; TEMP 98.1; O2SAT 100
== END 2018-04-09 19:07 | disposition home or self-care (01) | DRG 378 ==
LOC: ED 13:18 → ERH 14:38 → CCU 18:06 → 5RNO 04-09 13:49
PROVIDERS: ADMIT Family Medicine; ATTEND Family Medicine
DX: K57.31 Diverticulosis of large intestine without perforation or abscess with bleeding (principal); D62 Acute posthemorrhagic anemia; I10 Essential (primary) hypertension; E11.9 Type 2 diabetes mellitus without complications; E78.00 Pure hypercholesterolemia, unspecified; E78.5 Hyperlipidemia, unspecified; K59.00 Constipation, unspecified; K64.8 Other hemorrhoids; Z87.891 Personal history of nicotine dependence; Z79.84 Long term (current) use of oral hypoglycemic drugs; Z88.0 Allergy status to penicillin